=== PATIENT | male | born 1930 | race Caucasian/White ===

== ENCOUNTER 2017-11-02 12:06 | Emergency (ER) | payer MEDICARE, OTHER ==
[2017-11-02] MEDS ORDERED: NORMAL SALINE 1000 ML 1,000 ML IV ONE (12:59)
[2017-11-02 13:18] LABS: ABSOLUTE EOSINOPHILS # (AUTO) 0.1 10^3/uL (0.0-0.6); ABSOLUTE MONOCYTES (AUTO) 0.7 10^3/uL (0.1-1.4); ABSOLUTE NEUT (AUTO) 6.8 10^3/uL (1.7-8.2); BASOPHILS % (AUTO) 0.3 % (0-2); EOSINOPHILS % (AUTO) 0.9 % (0-6); HEMATOCRIT 36.6 % (37.9-51.0); HEMOGLOBIN 12.3 g/dL (13.5-17.0); LYMPHOCYTES % (AUTO) 12.2 % (13-45); MEAN CORPUSCULAR HEMOGLOBIN 28.8 pg (27.0-33.4); MEAN CORPUSCULAR HGB CONC 33.7 g/dL (32.0-36.0); MEAN CORPUSCULAR VOLUME 85 fl (80-97); MONOCYTES % (AUTO) 7.7 % (3-13); PLATELET COUNT 249 10^3/uL (150-450); RED BLOOD COUNT 4.29 10^6/uL (4.35-5.55); RED CELL DISTRIBUTION WIDTH 14.9 % (11.5-14.0); SEGMENTED NEUTROPHILS % (AUTO) 78.9 % (42-78); TOTAL CELLS COUNTED % (AUTO) 100 %; WHITE BLOOD COUNT 8.6 10^3/uL (4.0-10.5)
--- NOTE | 2017-11-02 13:20 | RADIOLOGY REPORT (SQ) ---
EXAM DESCRIPTION: CHEST SINGLE VIEW COMPLETED DATE/TIME: 11/02/2017 1:12 pm REASON FOR STUDY: Falling with contusions of chest. COMPARISON: None. EXAM PARAMETERS: NUMBER OF VIEWS: One view. TECHNIQUE: Single frontal radiographic view of the chest acquired. RADIATION DOSE: NA LIMITATIONS: None. FINDINGS: LUNGS AND PLEURA: No opacities, masses or pneumothorax. No pleural effusion. MEDIASTINUM AND HILAR STRUCTURES: No masses. Contour normal. HEART AND VASCULAR STRUCTURES: Heart normal in size. Normal vasculature. BONES: No rib fractures are appreciated. HARDWARE: None in the chest. OTHER: No other significant finding. IMPRESSION: NO ACUTE RADIOGRAPHIC FINDING IN THE CHEST. TECHNICAL DOCUMENTATION: JOB ID: [id number] [employer]- All Rights Reserved Reading location - IP/workstation name: [email or web address]
--- NOTE | 2017-11-02 13:37 | RADIOLOGY REPORT (SQ) ---
EXAM DESCRIPTION: CT HEAD WITHOUT COMPLETED DATE/TIME: 11/02/2017 1:27 pm REASON FOR STUDY: Hx dementia, altered ment status, no sleep/eat x3d COMPARISON: None. TECHNIQUE: Axial images acquired through the brain without intravenous contrast. Images reviewed wi th bone, brain and subdural windows. Images stored on PACS. All CT scanners at this facility use dose modulation, iterative reconstruction, and/or weight based d osing when appropriate to reduce radiation dose to as low as reasonably achievable (ALARA). [facility]: Dose Right [facility]: CareDose [facility]: Dose Right [facility]: Teradose 4D [facility]: Smart Paws for Life RADIATION DOSE: CT Rad equipment meets quality standard of care and radiation dose reduction techniq ues were employed. CTDIvol: 53.2 - 55.2 mGy. DLP: 2019 mGy-cm.mGy. LIMITATIONS: None. FINDINGS: VENTRICLES: Prominent. CEREBRUM: No masses. No hemorrhage. No midline shift. Areas of low density in the white matter mos t likely due to chronic micro-vascular ischemic change. No evidence for acute infarction. CEREBELLUM: No masses. No hemorrhage. No alteration of density. No evidence for acute infarction. EXTRAAXIAL SPACES: Age-related involutional change. No fluid collections. No masses. ORBITS AND GLOBE: No intra- or extraconal masses. Normal contour of globe without masses. CALVARIUM: No fracture. PARANASAL SINUSES: No fluid or mucosal thickening. SOFT TISSUES: No mass or hematoma. OTHER: No other significant finding. IMPRESSION: CHRONIC CHANGES OF ATROPHY AND MICROVASCULAR ISCHEMIA. NO ACUTE PROCESS. EVIDENCE OF ACUTE STROKE: NO. TECHNICAL DOCUMENTATION: JOB ID: [id number] Quality ID # [id number]: Final reports with documentation of one or more dose reduction techniques (e.g., Au tomated exposure control, adjustment of the mA and/or kV according to patient size, use of iterative reconstruction technique) 2010 [employer]- All Rights Reserved Reading location - IP/workstation name: [email or web address]
[2017-11-02 13:39] LABS: ALANINE AMINOTRANSFERASE 42 U/L (21-72); ALKALINE PHOSPHATASE 118 U/L (38-126); ANION GAP 13 (5-19); ASPARTATE AMINO TRANSFERASE 36 U/L (17-59); BILIRUBIN,DIRECT 0.3 mg/dL (0.0-0.4); BILIRUBIN,TOTAL 0.7 mg/dL (0.2-1.3); BLOOD UREA NITROGEN 29 mg/dL (7-20); CALCIUM 9.1 mg/dL (8.4-10.2); CARBON DIOXIDE 27 mmol/L (22-30); CHLORIDE 101 mmol/L (98-107); CREATINE KINASE 474 U/L (55-170); GLUCOSE 221 mg/dL (75-110); POTASSIUM 4.3 mmol/L (3.6-5.0); SODIUM 140.9 mmol/L (137-145); TOTAL PROTEIN 6.3 g/dL (6.3-8.2)
[2017-11-02 13:51] LABS: CREATINE KINASE MB 2.02 ng/mL (<4.55)
[2017-11-02 13:54] LABS: TROPONIN I 0.086 ng/mL
[2017-11-02 13:58] LABS: APPEARANCE,URINE CLEAR; BILIRUBIN,URINE NEGATIVE (NEGATIVE); COLOR,URINE YELLOW; GLUCOSE, URINE >=500 mg/dL (NEGATIVE); KETONES,URINE TRACE mg/dL (NEGATIVE); LEUKOCYTE ESTERASE,URINE NEGATIVE (NEGATIVE); NITRITE,URINE NEGATIVE (NEGATIVE); PROTEIN,URINE 30 mg/dL (NEGATIVE); URINE SPECIFIC GRAVITY 1.016; UROBILINOGEN,URINE NEGATIVE mg/dL (<2.0)
--- NOTE | 2017-11-02 16:08 | ER Document Report ---
ED General - General Chief Complaint: Weakness Stated Complaint: ALTERED MENTAL STATUS Time Seen by Provider: 11/02/17 12:56 Notes: Patient was brought to the emergency department by his son who is concerned because the patient has been talking out of his head for the last 6 days. The last 3 days, son says the patient has been talking nonstop and has not slept. He has a history of dementia, but has not had problems this severe. Son says he is also falling a lot and has a lot of bruises, hitting his head. Has been taking in fluids orally until the past 2 days when he stopped doing that. Have not noted any fevers. No apparent difficulty breathing or shortness of breath. No trouble with urinating. Family members rotate through the household to help take care of the patient. PMH: Dementia, IDDM, hypertension, depression. TRAVEL OUTSIDE OF THE [place] IN LAST 30 DAYS: No - Related Data Allergies/Adverse Reactions: No Known Allergies Allergy (Unverified 11/02/17 12:10) Past Medical History - Social History Smoking Status: Never Smoker Chew tobacco use (# tins/day): No Frequency of alcohol use: None Drug Abuse: None Family History: Reviewed & Not Pertinent Patient has suicidal ideation: No Patient has homicidal ideation: No - Past Medical History Cardiac Medical History: Reports: Hx Hypertension Denies: Hx Coronary Artery Disease Neurological Medical History: Reports: Other - Dementia. Denies: Hx Cerebrovascular Accident Endocrine Medical History: Reports: Hx Diabetes Mellitus Type 1 Review of Systems - Review of Systems Notes: REVIEW OF SYSTEMS: Review is from patient's son. CONSTITUTIONAL : Denies fever. EENT: Denies eye, ear, nose or mouth or throat pain or other symptoms. CARDIOVASCULAR: Denies chest pain. RESPIRATORY: Denies cough, chest congestion, or shortness of breath. GASTROINTESTINAL: Denies abdominal pain or nausea, vomiting, or diarrhea. GENITOURINARY: Denies difficulty or painful urinating, urinary frequency, blood in urine. MUSCULOSKELETAL: Denies back or neck pain. Denies joint pain or swelling. SKIN: Denies rash or skin lesions. NEUROLOGICAL: Denies LOC. Denies complaining of headache. Denies sensory loss or motor deficits. Son describes patient having frequent intermittent shaking spells with all of his extremities shaking vigorously and he seems very agitated and more confused than usual. ALL OTHER SYSTEMS REVIEWED AND NEGATIVE. -: Yes ROS unobtainable due to patient's medical condition Physical Exam - Vital signs Vitals: Temp Pulse Resp BP Pulse Ox 98.1 F 71 16 150/82 H 98 11/02/17 12:17 11/02/17 12:17 11/02/17 12:17 11/02/17 12:17 11/02/17 12:17 Interpretation: Normal - Notes Notes: PHYSICAL EXAMINATION: GENERAL: Intermittently well-appearing, in no acute distress, but then will have episodes where his 4 extremities shake and quiver and he becomes agitated, although he is not combative and is cooperative to being examined and obtaining lab specimens, etc. HEAD: Atraumatic except for a small bruised area of the right maxillary region of the face. EYES: Pupils equal round and reactive to light, extraocular movements intact. ENT: oropharynx clear without exudates. Moist mucous membranes. NECK: Normal range of motion, supple. LUNGS: Breath sounds clear and equal bilaterally. HEART: Regular rate and rhythm without murmurs. ABDOMEN: Soft, nontender. No guarding or rebound. No masses. BACK: No tenderness throughout entire back. EXTREMITIES: Normal range of motion without pain. NEUROLOGICAL: Patient's speech is almost exclusively un-understandable gibberish mostly talking to himself. Moves all 4 extremities without evidence of any loss of function. Having repeated episodes of shaking of the extremities. Grossly normal sensory, motor, and reflex exams. Awake, alert, but not oriented to anything. PSYCH: Normal mood, normal affect. SKIN: Warm, dry, no rashes. Course - Re-evaluation Re-evalutation: 11/02/17 18:41 Lab studies all came back looking relatively normal with slight elevation in patients BUN suggestive of mild dehydration. No evidence of urinary infection or lung infection or any infectious processes. I think this patient is exhibiting worsening or exacerbation of his dementia disorder. Son says that patient had something similar to this presentation a couple of years ago and it was treated with very low dose of Haldol, 0.5 mg, as needed. They had some of this medication left over and tried it during the past couple days but it has been of no help. That may be that it has lost its potency after a couple of years or that the dose is so low as to be ineffective. I suggested to the son that we provide some medication to see if we can get him to sleep at night and see what that does for him and then also prescribed a little stronger dose of Haldol at 2 mg to take a couple times a day if needed. Recommend they follow-up with Dr. Kevin next week. - Vital Signs Vital signs: Temp Pulse Resp BP Pulse Ox 98.1 F 71 19 157/78 H 89 L 11/02/17 12:17 11/02/17 12:17 11/02/17 16:17 11/02/17 16:17 11/02/17 16:17 - Laboratory Result Diagrams: 11/02/17 13:03 11/02/17 13:03 Laboratory results interpreted by me: 11/02/17 11/02/17 11/02/17 12:50 13:03 13:03 RBC 4.29 L Hgb 12.3 L Hct 36.6 L RDW 14.9 H Seg Neutrophils % 78.9 H Lymphocytes % 12.2 L BUN 29 H Glucose 221 H POC Glucose 254 H Creatine Kinase 474 H Urine Protein Urine Glucose (UA) Urine Ketones 11/02/17 13:35 RBC Hgb Hct RDW Seg Neutrophils % Lymphocytes % BUN Glucose POC Glucose Creatine Kinase Urine Protein 30 H Urine Glucose (UA) >=500 H Urine Ketones TRACE H - Diagnostic Test Radiology reviewed: Image reviewed, Reports reviewed - CT scan of the brain is normal. Radiology results interpreted by me: 11/02/17 18:44 Chest x-ray shows no acute processes. Discharge - Discharge Clinical Impression: Altered mental status, Dehydration, Dementia Condition: Stable Disposition: HOME, SELF-CARE Additional Instructions: Altered Mental Status An altered mental status is a change in the normal functioning of the brain. This alteration of function can range from minor decreased brain function with some forgetfulness and confusion to complete loss of consciousness and coma. There are many possible causes of an altered mental status and include brain injuries such as trauma or strokes, problems with oxygen supply to the brain, fever and infections of the brain and/or elsewhere in the body, metabolic abnormalities such as low or high blood sugar, overdoses or excessive medication ingestion, and mental and psychiatric illnesses. Sometimes the altered mental status resolves and a definite cause is not determined. If a cause for your altered mental status was found, it has likely been corrected. Your evaluation has not shown any condition that requires that you be admitted to the hospital. It is believed that you are safe to leave and return to your home. If you have a return of your symptoms, you should return for re-evaluation. Dementia The exam shows a decrease in mental ability called dementia. Signs of dementia include a gradual loss of memory and a decreased ability to reason and solve problems. Personality changes, hostility, lack of self-care, and loss of bladder or bowel control are later signs of dementia. In these later stages, patients may become confused, lost, fearful, or agitated, even in familiar places. Alzheimer's disease is the most common type of dementia. It has no known cause or specific treatment. Other causes include alcohol and drug abuse, medication effects (especially tranquilizers and sleeping pills), strokes, head injuries, and brain tumors. Sometimes severe depression in an elderly person is mistaken for dementia, and this can be treated if recognized. A complete medical evaluation and ongoing care with a doctor is important. Most people with dementia need help or supervision with daily living. Some may be able to live independently with occasional help; others require foster care or even long-term placement. Alcohol, sedatives, and antihistamines may make the symptoms worse and should be avoided. Alzheimer's disease support groups are available in some communities and can be very valuable to the entire family. Prescription medication can ease the symptoms of Alzheimer's disease in some patients. Please arrange for medical follow-up. Return here if there is a sudden change in mental function, inability to move an arm or leg, inability to speak, fever, or any other significant change. Dehydration Dehydration can result from vomiting or diarrhea, fever, or decreased intake of fluids. If severe, hospitalization and intravenous fluids may be required. Most cases are treated at home with fluids by mouth. For the next 24 hours, drink lots of clear fluids. In mild cases, this can be soda pop or sports drinks. For more severe dehydration, the doctor may recommend special fluids such as Pedialyte or Lytren. Try to get three liters ( 3 quarts) of fluid per day. If vomiting occurs, continue to drink the fluids frequently (every 15 to 20 minutes), but in small amounts (one or two ounces). Depending on the type of dehydration, the doctor may prescribe antinausea medicine or potassium replacements. Call the doctor or return for re-examination if you become progressively weak, vomit repeatedly, or have other new symptoms. NORMAL EXAM AND WORKUP: At this time, your examination and workup show no significant abnormality, other than your mental status changes., But otherwise all the results are essentially normal. No significant abnormal physical findings were noted. All laboratory, EKG, and imaging (x-ray, CT scans, ultrasound) studies that were ordered show no significant abnormality. Although your examination and all studies that were ordered showed no significant abnormal finding, there are no examinations and no studies that are 100% accurate. There is always the possibility that some abnormality could exist and not be detected with physical examination or within the limits and capabilities of laboratory and other studies. You should return or follow up as you were instructed on your visit today for further evaluation if your symptoms do not resolve. I am prescribing Ambien for sleep and Haldol to use during the day for agitation and anxiety, etc. The dosages may be changed and different medication may be used in the past. Follow-up with your primary care provider, Dr. Kevin, next week. Prescriptions: Haloperidol [Haldol 2 Mg Tablet] 2 mg PO BIDP PRN #30 tablet PRN Reason: Zolpidem Tartrate [Ambien 5 mg Tablet] 5 mg PO HSP PRN #25 tablet PRN Reason: Referrals: LUIS KEVIN MD [PEDIATRICS] - Follow up in 3-5 days
[2017-11-02 16:37] VITALS: BP 157/78
--- NOTE | 2017-11-02 18:17 | EKG REPORT ---
SEVERITY:- ABNORMAL ECG - SINUS RHYTHM RIGHT BUNDLE BRANCH BLOCK : Confirmed by: Kaylynn Wall 02-Nov-2017 18:16:56
== END 2017-11-02 16:37 | disposition home or self-care (01) ==
LOC: ER 12:06
DX: R41.82 Altered mental status, unspecified (principal); F03.90 Unspecified dementia, unspecified severity, without behavioral disturbance, psychotic disturbance, mood disturbance, and anxiety; E86.0 Dehydration; R53.83 Other fatigue; E10.9 Type 1 diabetes mellitus without complications; I10 Essential (primary) hypertension; Z79.4 Long term (current) use of insulin
CPT/HCPCS: 93005; 99285; 96360; 96361; 51702; 36415; 87040; 87086; 82553; 82962; 82550; 85025; 80053; 81001; 84484; 71045; 70450; 93010; J7030

== ENCOUNTER 2018-01-14 17:25 | Inpatient (IN) | payer MEDICARE, OTHER ==
[2018-01-14] MEDS ORDERED: NORMAL SALINE 500 ML IV ONE (18:29)
--- NOTE | 2018-01-14 18:32 | ER Document Report ---
ED Medical Screen (RME) - General Chief Complaint: General Weakness Stated Complaint: POSSIBLE DEHYDRATION Time Seen by Provider: 01/14/18 18:08 Mode of Arrival: Wheelchair Information source: Relative Notes: 87-year-old male brought to the emergency department for possible dehydration. Family members state that the patient is cared for by them. For the last 3 days the patient has not consumed any food or fluids. He is unable to swallow. Patient was diagnosed with pneumonia and dysphasia by the primary care physician approximately 5 days ago. Patient was started on an antibiotic. Family is unsure which antibiotic the patient is currently on. They state that he is not taking the antibiotic daily as prescribed because they have had difficulty feeding him. Family note that he is not as responsive as normal. He does have a history of dementia. They state that this is worsening. Family denies any fever, trauma, injury. I have greeted and performed a rapid initial assessment of this patient. A comprehensive ED assessment and evaluation of the patient, analysis of test results and completion of the medical decision making process will be conducted by additional ED providers. PHYSICAL EXAMINATION: GENERAL: Ill-appearing. Cachectic. HEAD: Atraumatic. EYES: Pupils equal round extraocular movements intact, conjunctiva are normal. ENT: Nares patent NECK: Normal range of motion LUNGS: No respiratory distress Musculoskeletal: Ulcerations to the bilateral heels. SKIN: Warm, Dry, ulcerations to the bilateral heels. TRAVEL OUTSIDE OF THE [place] IN LAST 30 DAYS: No - Related Data Allergies/Adverse Reactions: No Known Allergies Allergy (Unverified 11/02/17 12:10) Past Medical History - Social History Chew tobacco use (# tins/day): No Frequency of alcohol use: None Drug Abuse: None - Past Medical History Cardiac Medical History: Reports: Hx Hypertension Denies: Hx Coronary Artery Disease Neurological Medical History: Denies: Hx Cerebrovascular Accident Endocrine Medical History: Reports: Hx Diabetes Mellitus Type 1 Renal/ Medical History: Denies: Hx Peritoneal Dialysis Past Surgical History: Reports: Hx Orthopedic Surgery Physical Exam - Vital signs Vitals: Temp Pulse Resp BP Pulse Ox 97.6 F 114 H 16 150/97 H 98 01/14/18 17:39 01/14/18 17:39 01/14/18 17:39 01/14/18 17:39 01/14/18 17:39 Course - Vital Signs Vital signs: Temp Pulse Resp BP Pulse Ox 97.6 F 114 H 16 150/97 H 98 01/14/18 17:39 01/14/18 17:39 01/14/18 17:39 01/14/18 17:39 01/14/18 17:39
[2018-01-14 19:26] LABS: ABSOLUTE LYMPHOCYTES (AUTO) 1.4 10^3/uL (0.5-4.7); ABSOLUTE MONOCYTES (AUTO) 0.9 10^3/uL (0.1-1.4); BASOPHILS % (AUTO) 0.1 % (0-2); HEMATOCRIT 39.2 % (37.9-51.0); MEAN CORPUSCULAR HEMOGLOBIN 28.4 pg (27.0-33.4); MEAN CORPUSCULAR HGB CONC 33.2 g/dL (32.0-36.0); MEAN CORPUSCULAR VOLUME 86 fl (80-97); MONOCYTES % (AUTO) 6.4 % (3-13); PLATELET COUNT 330 10^3/uL (150-450); RED BLOOD COUNT 4.57 10^6/uL (4.35-5.55); RED CELL DISTRIBUTION WIDTH 15.3 % (11.5-14.0); SEGMENTED NEUTROPHILS % (AUTO) 83.5 % (42-78); TOTAL CELLS COUNTED % (AUTO) 100 %; WHITE BLOOD COUNT 14.4 10^3/uL (4.0-10.5)
--- NOTE | 2018-01-14 19:29 | RADIOLOGY REPORT (SQ) ---
EXAM DESCRIPTION: CHEST SINGLE VIEW COMPLETED DATE/TIME: 01/14/2018 7:01 pm REASON FOR STUDY: pneumonia COMPARISON: 11/02/2017 TECHNIQUE: Single frontal radiographic view of the chest acquired. NUMBER OF VIEWS: One view. LIMITATIONS: None. FINDINGS: LUNGS AND PLEURA: No pneumothorax. Similar chronic interstitial changes in the lung bases , left greater than right. Similar small area of nodularity in the right mid lung, more apparent on the current study. No consolidation or pleural effusion. MEDIASTINUM AND HILAR STRUCTURES: Stable. HEART AND VASCULAR STRUCTURES: Stable. BONES: No acute findings. HARDWARE: None in the chest. OTHER: No other significant finding. IMPRESSION: Similar chronic interstitial changes in the lung bases, left greater than right. Simil ar small area of nodularity in the right mid lung, more apparent on the current study. No consolidat ion or pleural effusion. TECHNICAL DOCUMENTATION: JOB ID: [id number] [place]-72 2010 [employer]- All Rights Reserved Reading location - IP/workstation name: [email or web address]
--- NOTE | 2018-01-14 19:30 | ER Document Report ---
ED General - General Chief Complaint: General Weakness Stated Complaint: POSSIBLE DEHYDRATION Time Seen by Provider: 01/14/18 18:08 Mode of Arrival: Wheelchair Information source: Patient, Relative, Emergency Med Personnel Notes: According to patient's son, patient has not eaten or drank any liquid in the past 3 days. Said patient has been losing weight and he has difficulty swallowing. TRAVEL OUTSIDE OF THE [place] IN LAST 30 DAYS: No - HPI Onset: Other - 3 days Onset/Duration: Gradual Quality of pain: No pain Exacerbated by: Denies Relieved by: Denies Similar symptoms previously: No Recently seen / treated by doctor: No - Related Data Allergies/Adverse Reactions: No Known Allergies Allergy (Unverified 11/02/17 12:10) Past Medical History - General Information source: Relative - Social History Smoking Status: Never Smoker Chew tobacco use (# tins/day): No Frequency of alcohol use: None Drug Abuse: None Family History: Reviewed & Not Pertinent Patient has suicidal ideation: No Patient has homicidal ideation: No - Past Medical History Cardiac Medical History: Reports: Hx Hypertension Denies: Hx Coronary Artery Disease Neurological Medical History: Denies: Hx Cerebrovascular Accident Endocrine Medical History: Reports: Hx Diabetes Mellitus Type 1 Renal/ Medical History: Denies: Hx Peritoneal Dialysis Past Surgical History: Reports: Hx Orthopedic Surgery Review of Systems - Review of Systems -: Yes ROS unobtainable due to patient's medical condition - Patient is too sick and weak to give medical history. Physical Exam - Vital signs Vitals: Temp Pulse Resp BP Pulse Ox 97.6 F 114 H 16 150/97 H 98 01/14/18 17:39 01/14/18 17:39 01/14/18 17:39 01/14/18 17:39 01/14/18 17:39 Interpretation: Normal - General General appearance: Alert, Other - Cachectic - HEENT Head: Normocephalic, Atraumatic Eyes: Normal Pupils: PERRL - Respiratory Respiratory status: No respiratory distress Chest status: Nontender Breath sounds: Normal Chest palpation: Normal - Cardiovascular Rhythm: Regular Heart sounds: Normal auscultation Murmur: No - Abdominal Inspection: Normal Distension: No distension Bowel sounds: Normal Tenderness: Nontender Organomegaly: No organomegaly - Back Back: Normal, Nontender - Extremities General upper extremity: Normal inspection, Nontender, Normal color, Normal ROM , Normal temperature General lower extremity: Normal inspection, Nontender, Normal color, Normal ROM , Normal temperature, Normal weight bearing. No: Jessika's sign - Neurological Neuro grossly intact: Yes Cognition: Inattentive Orientation: Disoriented to place, Disoriented to time [place] Coma Scale Eye Opening: Spontaneous [place] Coma Scale Verbal: Incomprehensible [place] Coma Scale Motor: Obeys Commands Lauryn Coma Scale Total: 12 Sensory: Normal - Psychological Associated symptoms: Flat affect - Skin Skin Temperature: Warm Skin Moisture: Dry Skin Color: Normal Course - Vital Signs Vital signs: Temp Pulse Resp BP Pulse Ox 97.9 F 85 14 121/69 100 01/15/18 01:25 01/15/18 01:25 01/15/18 01:25 01/15/18 01:25 01/15/18 01:25 - Laboratory Result Diagrams: 01/14/18 19:17 01/14/18 19:17 Laboratory results interpreted by me: 01/14/18 01/14/18 01/14/18 19:17 19:17 20:30 WBC 14.4 H Hgb 13.0 L RDW 15.3 H Seg Neutrophils % 83.5 H Lymphocytes % 10.0 L Absolute Neutrophils 12.0 H Sodium 152.0 H Chloride 113 H BUN 63 H Creatinine 1.63 H Est GFR ( Amer) 49 L Est GFR (Non-Af Amer) 40 L Glucose 507 H* POC Glucose Lactic Acid 3.5 H Alkaline Phosphatase 142 H Urine Protein Urine Glucose (UA) Urine Ketones Urine Blood Urine Ascorbic Acid 01/14/18 01/14/18 20:50 21:58 WBC Hgb RDW Seg Neutrophils % Lymphocytes % Absolute Neutrophils Sodium Chloride BUN Creatinine Est GFR ( Amer) Est GFR (Non-Af Amer) Glucose POC Glucose 359 H Lactic Acid Alkaline Phosphatase Urine Protein 100 H Urine Glucose (UA) >=500 H Urine Ketones TRACE H Urine Blood MODERATE H Urine Ascorbic Acid 20 H - Diagnostic Test Radiology reviewed: Image reviewed, Reports reviewed - EKG Interpretation by Me EKG shows normal: Sinus rhythm Rate: Tachycardia - 100 [place]/QRS: RBBB When compared to previous EKG there are: Previous EKG unavailable Additional EKG results interpreted by me: 01/15/18 00:31 No STEMI - Transfer of Care Care transferred to following provider: Patient will be admitted by Dr. Gustavo Norwood the hospitalist software implementation specialist. Critical Care Note - Critical Care Note Total time excluding time spent on procedures (mins): 45 Discharge - Discharge Clinical Impression: Severe dehydration, Failure to thrive in adult Dysphagia Qualifiers: Dysphagia type: oropharyngeal phase Qualified Code(s): R13.12 - Dysphagia, oropharyngeal phase Hyperglycemia due to type 2 diabetes mellitus Qualifiers: Diabetes mellitus local intermodal truck driver insulin use: unspecified local intermodal truck driver insulin use status Qualified Code(s): E11.65 - Type 2 diabetes mellitus with hyperglycemia Aspiration pneumonia Qualifiers: Aspiration pneumonia type: unspecified Laterality: unspecified laterality Lung location: lower lobe of lung Qualified Code(s): J69.0 - Pneumonitis due to inhalation of food and vomit Condition: Fair Disposition: ADMITTED INPATIENT Admitting Provider: Dr Gustavo Norwood Unit Admitted: Telemetry
--- NOTE | 2018-01-14 19:35 | RADIOLOGY REPORT (SQ) ---
EXAM DESCRIPTION: CT HEAD WITHOUT COMPLETED DATE/TIME: 01/14/2018 7:07 pm REASON FOR STUDY: ams COMPARISON: 11/02/2017 TECHNIQUE: Axial images acquired through the brain without intravenous contrast. Images reviewed wi th bone, brain and subdural windows. Additional sagittal and coronal reconstructions were generated. Images stored on PACS. All CT scanners at this facility use dose modulation, iterative reconstruction, and/or weight based d osing when appropriate to reduce radiation dose to as low as reasonably achievable (ALARA). [facility]: Dose Right [facility]: CareDose [facility]: Dose Right [facility]: Teradose 4D [facility]: Smart [employer] RADIATION DOSE: CT Rad equipment meets quality standard of care and radiation dose reduction techniq ues were employed. CTDIvol: 53.2 mGy. DLP: 1017 mGy-cm. mGy. LIMITATIONS: None. FINDINGS: VENTRICLES: Normal size and contour. CEREBRUM: Cortical atrophy. No masses. No hemorrhage. No midline shift. No evidence for acute inf arction. Few scattered areas of low density in the white matter most likely chronic small vessel isch emic changes. CEREBELLUM: No masses. No hemorrhage. No alteration of density. No evidence for acute infarction. EXTRAAXIAL SPACES: Chronic bilateral subdural fluid collections with no acute hemorrhage. ORBITS AND GLOBE: No intra- or extraconal masses. Normal contour of globe without masses. CALVARIUM: No fracture. PARANASAL SINUSES: No fluid or mucosal thickening. SOFT TISSUES: No mass or hematoma. OTHER: No other significant finding. IMPRESSION: Chronic bilateral subdural collections. Involutional changes of aging. Chronic microva scular ischemia. No acute intracranial imaging findings. EVIDENCE OF ACUTE STROKE: NO. COMMENT: Quality ID # [id number]: Final reports with documentation of one or more dose reduction techniques (e.g., Automated exposure control, adjustment of the mA and/or kV according to patient size, use of iterative reconstruction technique) TECHNICAL DOCUMENTATION: JOB ID: [id number] [employer] [place]- All Rights Reserved Reading location - IP/workstation name: [email or web address]
[2018-01-14 19:43] LABS: BLOOD UREA NITROGEN 63 mg/dL (7-20); CALCIUM 9.7 mg/dL (8.4-10.2)
[2018-01-14 19:44] LABS: ALANINE AMINOTRANSFERASE 22 U/L (21-72); ALBUMIN 3.8 g/dL (3.5-5.0); ALKALINE PHOSPHATASE 142 U/L (38-126); ANION GAP 15 (5-19); ASPARTATE AMINO TRANSFERASE 20 U/L (17-59); BILIRUBIN,DIRECT 0.4 mg/dL (0.0-0.4); BILIRUBIN,TOTAL 0.7 mg/dL (0.2-1.3); CARBON DIOXIDE 24 mmol/L (22-30); CHLORIDE 113 mmol/L (98-107); POTASSIUM 4.3 mmol/L (3.6-5.0); TOTAL PROTEIN 6.6 g/dL (6.3-8.2)
[2018-01-14 19:56] LABS: GLUCOSE 507 mg/dL (75-110)
[2018-01-14] MEDS ORDERED: NORMAL SALINE 1000 ML 1,000 ML IV ONE ×2 (20:11→20:12)
[2018-01-14] MEDS ORDERED: LEVOFLOXACIN 750 MG/D5W RTU 750 MG/150 ML RTUPB IV ONE (20:13)
[2018-01-14] MEDS ORDERED: INSULIN REG, HUMAN 100 UNIT/ML 3 ML VIAL (PYX) IV ONE (20:14)
[2018-01-14 21:22] LABS: APPEARANCE,URINE SLIGHTLY-CLOUDY; BILIRUBIN,URINE NEGATIVE (NEGATIVE); COLOR,URINE YELLOW; GLUCOSE, URINE >=500 mg/dL (NEGATIVE); KETONES,URINE TRACE mg/dL (NEGATIVE); LEUKOCYTE ESTERASE,URINE NEGATIVE (NEGATIVE); NITRITE,URINE NEGATIVE (NEGATIVE); PROTEIN,URINE 100 mg/dL (NEGATIVE); URINE SPECIFIC GRAVITY 1.029; UROBILINOGEN,URINE NEGATIVE mg/dL (<2.0)
--- NOTE | 2018-01-14 23:12 | RADIOLOGY REPORT (SQ) ---
EXAM DESCRIPTION: XR ABDOMEN 1 VIEW (KUB) COMPLETED DATE/TME: 01/14/2018 22:37 CLINICAL HISTORY: 87 years Male Anorexia COMPARISON: None. TECHNIQUE: Single view of the abdomen. FINDINGS: No evidence of free intraperitoneal air. No bowel obstruction. Psoas margins are sharp. Vascular calcification is present. Degenerative changes in the spine. IMPRESSION: No acute plain film abnormality is identified.
[2018-01-14] MEDS ORDERED: ACETAMINOPHEN 650 MG SUPP.RECT PR PRN (23:39)
[2018-01-14] MEDS ORDERED: GLUCAGON,HUMAN RECOMB 1 MG INJ IM PRN (23:39)
[2018-01-14] MEDS ORDERED: MAG HYDROX/AL HYDROX/SIMETH SUSP 30 ML UDCUP PO PRN (23:39)
[2018-01-14] MEDS ORDERED: MAGNESIUM HYDROXIDE SUSP 30 ML UDCUP PO PRN (23:39)
[2018-01-14] MEDS ORDERED: DEXTROSE 40% GEL 15 GM TUBE PO PRN ×2 (23:39)
[2018-01-14] MEDS ORDERED: IPRATROPIUM/ALBUTEROL 0.5-2.5 MG/3 ML AMPUL NEB PRN (23:39)
[2018-01-14] MEDS ORDERED: DEXTROSE 50%-WATER 25 GM/50 ML DISP.SYRIN IV PRN ×2 (23:39)
[2018-01-14] MEDS ORDERED: NORMAL SALINE 1000 ML 1,000 ML IV SCH (23:45)
[2018-01-15] MEDS ORDERED: LORAZEPAM INJ 2 MG/1 ML VIAL IV ONE (02:15)
[2018-01-15] MEDS: 1/2 NORMAL SALINE 1,000 ML IV PRN ×3 (02:20→16:13)
[2018-01-15] MEDS: HEPARIN SOD (PORCINE) 5,000 UNIT/ML 1 ML SYRINGE SUBCUT SCH ×3 (06:37→21:53)
[2018-01-15 07:44] LABS: ABSOLUTE EOSINOPHILS # (AUTO) 0.1 10^3/uL (0.0-0.6); ABSOLUTE LYMPHOCYTES (AUTO) 1.1 10^3/uL (0.5-4.7); ABSOLUTE MONOCYTES (AUTO) 0.5 10^3/uL (0.1-1.4); ABSOLUTE NEUT (AUTO) 5.9 10^3/uL (1.7-8.2); BASOPHILS % (AUTO) 0.1 % (0-2); EOSINOPHILS % (AUTO) 1.2 % (0-6); LYMPHOCYTES % (AUTO) 14.5 % (13-45); MEAN CORPUSCULAR HEMOGLOBIN 29.1 pg (27.0-33.4); MEAN CORPUSCULAR HGB CONC 34.6 g/dL (32.0-36.0); MEAN CORPUSCULAR VOLUME 84 fl (80-97); MONOCYTES % (AUTO) 7.1 % (3-13); PLATELET COUNT 198 10^3/uL (150-450); RED BLOOD COUNT 3.45 10^6/uL (4.35-5.55); RED CELL DISTRIBUTION WIDTH 15.2 % (11.5-14.0); SEGMENTED NEUTROPHILS % (AUTO) 77.1 % (42-78); TOTAL CELLS COUNTED % (AUTO) 100 %; WHITE BLOOD COUNT 7.6 10^3/uL (4.0-10.5)
--- NOTE | 2018-01-15 07:50 | PDOC H&P ---
History of Present Illness Admission Date/PCP: 01/14/18 23:28 LUIS KEVIN MD Patient complains of: Anorexia History of Present Illness: REDDY ROSAS is a 87 year old male with a past medical history of diabetes, advanced dementia, nonverbal requiring 100% care by family members at bedside. He presents with 1 week of cough with eating and drinking. He is recently started on Levaquin for possible pneumonia. Patient was noted to take medications without water. Followed by significant reluctance of p.o. intake. In the emergency room he is found to have hyponatremia, acute renal failure, dehydration and hyperglycemia. He is referred to the hospitalist for admission. Family members at bedside verifies CODE STATUS with portable DNR. Past Medical History Cardiac Medical History: Reports: Hypertension Denies: Coronary Artery Disease Endocrine Medical History: Reports: Diabetes Mellitus Type 1 Psychiatric Medical History: Reports: Dementia Past Surgical History Past Surgical History: Reports: Orthopedic Surgery Social History Information Source: Relative, [facility] Records Lives with: Family Smoking Status: Never Smoker Frequency of Alcohol Use: None Hx Recreational Drug Use: No Drugs: None Hx Prescription Drug Abuse: No - Advance Directive Resuscitation Status: Do Not Resuscitate Family History Family History: Other - Hypertension, negative for Alzheimer's Parental Family History Reviewed: Yes Children Family History Reviewed: Yes Sibling(s) Family History Reviewed.: Yes Medication/Allergy Allergies/Adverse Reactions: No Known Allergies Allergy (Unverified 11/02/17 12:10) Review of Systems ROS unobtainable: Due to mental status - Advanced dementia nonverbal state. Physical Exam Vital Signs: Temp Pulse Resp BP Pulse Ox 97.4 F 72 19 110/65 96 01/15/18 03:42 01/15/18 07:00 01/15/18 03:42 01/15/18 03:42 01/15/18 03:42 Intake & Output 01/13/18 01/14/18 01/15/18 11:59 11:59 11:59 Weight 46.1 kg General appearance: PRESENT: no acute distress, thin. ABSENT: cooperative Head exam: PRESENT: atraumatic, normocephalic Eye exam: PRESENT: conjunctiva pink, EOMI, PERRLA. ABSENT: scleral icterus Ear exam: PRESENT: normal external ear exam Mouth exam: PRESENT: dry mucosa, tongue midline. ABSENT: laceration, moist Neck exam: ABSENT: carotid bruit, JVD, lymphadenopathy, thyromegaly Respiratory exam: PRESENT: clear to auscultation tanner. ABSENT: rales, rhonchi, wheezes Cardiovascular exam: PRESENT: RRR. ABSENT: diastolic murmur, rubs, systolic murmur Pulses: PRESENT: normal dorsalis pedis pul Vascular exam: PRESENT: normal capillary refill GI/Abdominal exam: PRESENT: normal bowel sounds, soft. ABSENT: distended, guarding, mass, organolmegaly, rebound, tenderness Rectal exam: PRESENT: deferred Extremities exam: PRESENT: full ROM. ABSENT: calf tenderness, clubbing, pedal edema Neurological exam: PRESENT: alert, awake, CN II-XII grossly intact. ABSENT: motor sensory deficit Psychiatric exam: PRESENT: appropriate affect, normal mood. ABSENT: homicidal ideation, suicidal ideation Skin exam: PRESENT: dry, intact, warm. ABSENT: cyanosis, rash Results Laboratory Results: 01/15/18 00:23 Lactic Acid 3.6 H Impressions: Chest X-Ray 01/14/18 18:27 IMPRESSION: Similar chronic interstitial changes in the lung bases, left greater than right. Similar small area of nodularity in the right mid lung, more apparent on the current study. No consolidation or pleural effusion. Head CT 01/14/18 18:28 IMPRESSION: Chronic bilateral subdural collections. Involutional changes of aging. Chronic microvascular ischemia. No acute intracranial imaging findings. EVIDENCE OF ACUTE STROKE: NO. KUB X-Ray 01/14/18 22:37 IMPRESSION: No acute plain film abnormality is identified. Assessment & Plan - Diagnosis (1) Dysphagia Qualifiers: Dysphagia type: oropharyngeal phase Qualified Code(s): R13.12 - Dysphagia, oropharyngeal phase Is this a current diagnosis for this admission?: Yes Plan: Versus odynophagia, patient noted to consume p.o. medications without water prior to worsening of symptom. Speech therapy consult, consider modified barium swallow study. Supportive care, consider NG. 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
--- NOTE | 2018-01-15 07:52 | EKG REPORT ---
SEVERITY:- ABNORMAL ECG - SINUS TACHYCARDIA RBBB AND LAFB : Confirmed by: Elmer Gentile MD 15-Jan-2018 07:51:00
[2018-01-15 08:04] LABS: ANION GAP 8 (5-19); BLOOD UREA NITROGEN 48 mg/dL (7-20); CARBON DIOXIDE 23 mmol/L (22-30); CHLORIDE 122 mmol/L (98-107); GLUCOSE 179 mg/dL (75-110); POTASSIUM 3.5 mmol/L (3.6-5.0); SODIUM 153.3 mmol/L (137-145)
[2018-01-15 08:29] LABS: INTERNATIONAL RATION (INR) 1.18; PROTHROMBIN TIME 15.6 SEC (11.4-15.4)
[2018-01-15] MEDS ORDERED: PHARMACY COMMUNICATION ORDER MC NR (11:00)
[2018-01-15] MEDS ORDERED: MAGNESIUM HYDROXIDE SUSP 30 ML UDCUP NG PRN (11:24)
[2018-01-15] MEDS ORDERED: MAG HYDROX/AL HYDROX/SIMETH SUSP 30 ML UDCUP NG PRN (11:24)
--- NOTE | 2018-01-15 13:11 | RADIOLOGY REPORT (SQ) ---
EXAM DESCRIPTION: KUB/ABDOMEN (SINGLE VIEW) COMPLETED DATE/TIME: 01/15/2018 12:25 pm REASON FOR STUDY: Check Placement of NG Tube altered mental status, unable to swallow COMPARISON: KUB 01/14/2018 NUMBER OF VIEWS: One view. TECHNIQUE: Supine radiographic image of the abdomen acquired. LIMITATIONS: Film for nasogastric tube placement. Mid and lower abdomen cropped from the field of v iew FINDINGS: BOWEL GAS PATTERN: Normal bowel gas pattern. No dilated loops. CALCIFICATIONS: No suspicious calcifications. SOFT TISSUES: No gross mass or suggestion of organomegaly. HARDWARE: There is a nasogastric tube present with the tip and side-port in stomach. Clips right upp er quadrant post cholecystectomy. BONES: No acute fracture. No worrisome bone lesions. OTHER: Lung bases are clear IMPRESSION: Nasogastric tube tip and side port in the stomach TECHNICAL DOCUMENTATION: JOB ID: [id number] [employer]- All Rights Reserved Reading location - IP/workstation name: [email or web address]
[2018-01-15] MEDS: INSULIN LISPRO 100 UNIT/ML 3 ML VIAL SUBCUT PRN (16:14)
--- NOTE | 2018-01-15 18:09 | Progress Note ---
Provider Note Provider Note: REDDY ROSAS is a 87 year old male with a past medical history of diabetes, advanced dementia, nonverbal requiring 100% care by family members at bedside. He presents with 1 week of cough with eating and drinking, significant reluctance of p.o. intake. Admitted to hospitalist for hyponatremia, acute renal failure, dehydration and hyperglycemia. Family members state they want to pursue NG placement and enteral feeding. 1. HYPERnatremia: secondary to dehydration. Continue 1/2NS IVF. Plan for NG placement with free water flushes. 2. ARF: secondary to dehydration and poor nutrition. Continue IVF. 3. AMS: Likely multifactoral -electrolyte derangement, dehydration, poor nutrition, possible PNA. PNA addressed with abx. All other issues addressed with IV hydration and enteral feeding. 4. DNR: family has provided portable DNR.
[2018-01-16 05:52] LABS: ABSOLUTE EOSINOPHILS # (AUTO) 0.2 10^3/uL (0.0-0.6); ABSOLUTE LYMPHOCYTES (AUTO) 1.1 10^3/uL (0.5-4.7); ABSOLUTE MONOCYTES (AUTO) 0.4 10^3/uL (0.1-1.4); ABSOLUTE NEUT (AUTO) 5.1 10^3/uL (1.7-8.2); BASOPHILS % (AUTO) 0.2 % (0-2); EOSINOPHILS % (AUTO) 3.2 % (0-6); HEMATOCRIT 28.9 % (37.9-51.0); HEMOGLOBIN 9.8 g/dL (13.5-17.0); LYMPHOCYTES % (AUTO) 16.2 % (13-45); MEAN CORPUSCULAR HEMOGLOBIN 28.8 pg (27.0-33.4); MEAN CORPUSCULAR HGB CONC 34.1 g/dL (32.0-36.0); MEAN CORPUSCULAR VOLUME 85 fl (80-97); MONOCYTES % (AUTO) 5.7 % (3-13); PLATELET COUNT 183 10^3/uL (150-450); RED BLOOD COUNT 3.41 10^6/uL (4.35-5.55); RED CELL DISTRIBUTION WIDTH 14.9 % (11.5-14.0); SEGMENTED NEUTROPHILS % (AUTO) 74.7 % (42-78); TOTAL CELLS COUNTED % (AUTO) 100 %; WHITE BLOOD COUNT 6.8 10^3/uL (4.0-10.5)
[2018-01-16] MEDS: HEPARIN SOD (PORCINE) 5,000 UNIT/ML 1 ML SYRINGE SUBCUT SCH ×3 (06:34→23:02)
[2018-01-16 10:07] LABS: ALBUMIN 2.4 g/dL (3.5-5.0); CARBON DIOXIDE 24 mmol/L (22-30); TOTAL PROTEIN 4.5 g/dL (6.3-8.2)
[2018-01-16 10:08] LABS: GLUCOSE 148 mg/dL (75-110)
[2018-01-16 10:10] LABS: ALANINE AMINOTRANSFERASE 31 U/L (21-72); ALKALINE PHOSPHATASE 94 U/L (38-126); ASPARTATE AMINO TRANSFERASE 45 U/L (17-59); BILIRUBIN,DIRECT 0.1 mg/dL (0.0-0.4); BILIRUBIN,TOTAL 0.4 mg/dL (0.2-1.3); BLOOD UREA NITROGEN 32 mg/dL (7-20); CALCIUM 7.8 mg/dL (8.4-10.2); CHLORIDE 116 mmol/L (98-107); POTASSIUM 3.4 mmol/L (3.6-5.0)
[2018-01-16 10:14] LABS: ANION GAP 4 (5-19)
[2018-01-16] MEDS ORDERED: POTASSIUM CHLORIDE 20 MEQ/15 ML UDCUP PO ONE (11:30)
[2018-01-16] MEDS: INSULIN LISPRO 100 UNIT/ML 3 ML VIAL SUBCUT PRN ×2 (12:19→17:49)
--- NOTE | 2018-01-16 17:30 | RADIOLOGY REPORT (SQ) ---
EXAM DESCRIPTION: KUB/ABDOMEN (SINGLE VIEW) COMPLETED DATE/TIME: 01/16/2018 5:05 pm REASON FOR STUDY: NG placement COMPARISON: 01/15/2018, 01/14/2018 NUMBER OF VIEWS: One view. TECHNIQUE: Supine radiographic images of the abdomen acquired. LIMITATIONS: None. FINDINGS: BOWEL GAS PATTERN: 2 separate supine views of the abdomen were submitted. 1 demonstrates an NG tube coiled in the esophagus. The other demonstrates the NG tube overlying the left upper quad rant presumably within stomach. Both films are dated 01/16/2018 at 1649 hours. CALCIFICATIONS: No suspicious calcifications. SOFT TISSUES: No gross mass or suggestion of organomegaly. HARDWARE: None in the abdomen. BONES: No acute fracture. No worrisome bone lesions. OTHER: No other significant finding. IMPRESSION: 2 separate views of the abdomen were submitted 1 demonstrates the NG tube coiled in the esophagus. A separate film demonstrates an NG tube with the tip in the left upper quadrant most like ly stomach. Timing of the films cannot be determined. TECHNICAL DOCUMENTATION: JOB ID: [id number] [employer] All Rights Reserved Reading location - IP/workstation name: [email or web address]
--- NOTE | 2018-01-16 20:44 | PDOC PROGRESS REPORT ---
Subjective Progress Note for:: 01/16/18 Subjective:: REDDY ROSAS is a 87 year old male with a past medical history of diabetes, advanced dementia, nonverbal requiring 100% care by family members at bedside. He presents with 1 week of cough with eating and drinking, significant reluctance of p.o. intake. Admitted to hospitalist for hyponatremia, acute renal failure, dehydration and hyperglycemia. The patient was seen this afternoon on rounds. He is awake, eyes open and oriented to self. He is disoriented to place, time and situation. This is a marked improvement compared to yesterday when the patient was nonverbal and would not open his eyes. An NG tube was inserted yesterday afternoon and the patient was started on enteral feeding. His electrolyte imbalances have significantly improved today. Unfortunately, the patient's family was not at the bedside. Plan to continue enteral feeding and free water today. Plan for swallow evaluation tomorrow. Reason For Visit: DYSPHAGIA, ARF, DEHYDRATION, DEMENTIA HTN Physical Exam Vital Signs: Temp Pulse Resp BP Pulse Ox 97.2 F 66 16 133/57 H 96 01/16/18 15:38 01/16/18 16:35 01/16/18 16:35 01/16/18 15:38 01/16/18 16:35 Intake & Output 01/15/18 01/16/18 01/17/18 06:59 06:59 06:59 Intake Total 3000 840 Balance 3000 840 Weight 46.1 kg 46.1 kg General appearance: PRESENT: thin Head exam: PRESENT: atraumatic Eye exam: PRESENT: conjunctiva pink, PERRLA Mouth exam: PRESENT: moist, neck supple, tongue midline Teeth exam: PRESENT: poor dentation Neck exam: PRESENT: full ROM Respiratory exam: PRESENT: clear to auscultation tanner, symmetrical, unlabored Cardiovascular exam: PRESENT: +S1, +S2 Pulses: PRESENT: normal radial pulses, +1 pedal pulses bilateral Vascular exam: PRESENT: normal capillary refill GI/Abdominal exam: PRESENT: normal bowel sounds, soft. ABSENT: tenderness Rectal exam: PRESENT: deferred Extremities exam: PRESENT: other - LOWER EXTREMITY ATROPHY. KNEES ARE CONTRACTED.. ABSENT: full ROM, pedal edema Musculoskeletal exam: ABSENT: ambulatory, full ROM, normal inspection - LOWER EXTREMITY ATROPHY. KNEES ARE CONTRACTED. Neurological exam: PRESENT: alert, awake, oriented to person. ABSENT: oriented to place, oriented to time, oriented to situation Skin exam: PRESENT: dry, intact, pallor Results Laboratory Results: 01/16/18 05:28 01/16/18 05:28 01/16/18 01/16/18 05:28 05:28 WBC 6.8 RBC 3.41 L Hgb 9.8 L Hct 28.9 L MCV 85 MCH 28.8 MCHC 34.1 RDW 14.9 H Plt Count 183 Seg Neutrophils % 74.7 Lymphocytes % 16.2 Monocytes % 5.7 Eosinophils % 3.2 Basophils % 0.2 Absolute Neutrophils 5.1 Absolute Lymphocytes 1.1 Absolute Monocytes 0.4 Absolute Eosinophils 0.2 Absolute Basophils 0.0 Sodium 144.0 Potassium 3.4 L Chloride 116 H Carbon Dioxide 24 Anion Gap 4 L BUN 32 H Creatinine 0.89 Est GFR ( Amer) > 60 Est GFR (Non-Af Amer) > 60 Glucose 148 H Calcium 7.8 L Total Bilirubin 0.4 AST 45 ALT 31 Alkaline Phosphatase 94 Total Protein 4.5 L Albumin 2.4 L Impressions: Chest X-Ray 01/14/18 18:27 IMPRESSION: Similar chronic interstitial changes in the lung bases, left greater than right. Similar small area of nodularity in the right mid lung, more apparent on the current study. No consolidation or pleural effusion. Head CT 01/14/18 18:28 IMPRESSION: Chronic bilateral subdural collections. Involutional changes of aging. Chronic microvascular ischemia. No acute intracranial imaging findings. EVIDENCE OF ACUTE STROKE: NO. KUB X-Ray 01/16/18 00:00 IMPRESSION: 2 separate views of the abdomen were submitted 1 demonstrates the NG tube coiled in the esophagus. A separate film demonstrates an NG tube with the tip in the left upper quadrant most likely stomach. Timing of the films cannot be determined. Status: Imported from PACS Assessment & Plan - Diagnosis (1) Failure to thrive in adult Is this a current diagnosis for this admission?: Yes Plan: Improving. Likely multifactoral -electrolyte derangement, dehydration, poor nutrition, possible PNA. PNA addressed with abx. All other issues addressed with IV hydration and enteral feeding. Patient is more awake and alert today (2) Dysphagia Qualifiers: Dysphagia type: oropharyngeal phase Qualified Code(s): R13.12 - Dysphagia, oropharyngeal phase Is this a current diagnosis for this admission?: Yes Plan: Unable to participate in initial swallow evaluation NG placed for nutrition and hydration Now that patient is more awake, plan to re-evaluate swallowing ability (3) Hypernatremia Is this a current diagnosis for this admission?: Yes Plan: Resolved Na trending down 153-->144 Secondary to dehydration. Discontinue 1/2NS IVF, free water flushes only. Continue enteral feeding (4) Severe dehydration Is this a current diagnosis for this admission?: Yes Plan: Secondary to prolonged anorexia and dysphagia Improved with IVF and enteral feeding BUN decreased from 63-->38 (5) Acute renal failure Is this a current diagnosis for this admission?: Yes Plan: Resolved Initial creatinine 1.6 now improved to 0.89 Discontinued IVF now receiving enteral feeding and free water flushes - Time Time Spent with patient: 15-24 minutes Medications reviewed and adjusted accordingly: Yes Anticipated discharge: Home - Inpatient Certification Based on my medical assessment, after consideration of the patient's comorbidities, presenting symptoms, or acuity I expect that the services needed warrant INPATIENT care.: Yes I certify that my determination is in accordance with my understanding of Medicare's requirements for reasonable and necessary INPATIENT services [42 CFR 412.3e].: Yes Medical Necessity: Risk of Complication if Not Cared For in Hospital - Plan Summary Plan Summary: CONTINUE ENTERAL FEEDING AND FREE WATER FLUSHES. SWALLOW EVALUATION TOMORROW.
[2018-01-17 04:58] LABS: ABSOLUTE EOSINOPHILS # (AUTO) 0.2 10^3/uL (0.0-0.6); ABSOLUTE MONOCYTES (AUTO) 0.4 10^3/uL (0.1-1.4); ABSOLUTE NEUT (AUTO) 5.3 10^3/uL (1.7-8.2); BASOPHILS % (AUTO) 0.2 % (0-2); EOSINOPHILS % (AUTO) 2.7 % (0-6); HEMATOCRIT 30.2 % (37.9-51.0); HEMOGLOBIN 10.4 g/dL (13.5-17.0); LYMPHOCYTES % (AUTO) 14.4 % (13-45); MEAN CORPUSCULAR HGB CONC 34.4 g/dL (32.0-36.0); MEAN CORPUSCULAR VOLUME 84 fl (80-97); MONOCYTES % (AUTO) 5.5 % (3-13); PLATELET COUNT 196 10^3/uL (150-450); RED BLOOD COUNT 3.58 10^6/uL (4.35-5.55); RED CELL DISTRIBUTION WIDTH 14.9 % (11.5-14.0); SEGMENTED NEUTROPHILS % (AUTO) 77.2 % (42-78); TOTAL CELLS COUNTED % (AUTO) 100 %; WHITE BLOOD COUNT 6.8 10^3/uL (4.0-10.5)
[2018-01-17 05:12] LABS: ALANINE AMINOTRANSFERASE 33 U/L (21-72); ALBUMIN 2.5 g/dL (3.5-5.0); ALKALINE PHOSPHATASE 112 U/L (38-126); ANION GAP 7 (5-19); ASPARTATE AMINO TRANSFERASE 43 U/L (17-59); BILIRUBIN,DIRECT 0.1 mg/dL (0.0-0.4); BILIRUBIN,TOTAL 0.3 mg/dL (0.2-1.3); BLOOD UREA NITROGEN 27 mg/dL (7-20); CALCIUM 8.2 mg/dL (8.4-10.2); CARBON DIOXIDE 23 mmol/L (22-30); CHLORIDE 110 mmol/L (98-107); GLUCOSE 210 mg/dL (75-110); SODIUM 139.5 mmol/L (137-145); TOTAL PROTEIN 4.8 g/dL (6.3-8.2)
[2018-01-17] MEDS: HEPARIN SOD (PORCINE) 5,000 UNIT/ML 1 ML SYRINGE SUBCUT SCH ×3 (05:43→22:40)
[2018-01-17] MEDS: INSULIN LISPRO 100 UNIT/ML 3 ML VIAL SUBCUT PRN ×3 (06:54→16:55)
--- NOTE | 2018-01-17 12:57 | RADIOLOGY REPORT (SQ) ---
EXAM DESCRIPTION: DONALD SWALLOW COMPLETED DATE/TIME: 01/17/2018 10:37 am REASON FOR STUDY: ASSESS NEED FOR ENTERAL FEEDING advanced dementia, dysphagia, high suspicion for a spiration pneumonia COMPARISON: None. TECHNIQUE: Videofluoroscopic swallowing examination was performed in conjunction with speech patholo gy. Videofluoroscopic imaging was obtained and reviewed and these are the findings: RADIATION DOSE: Fluoro time 4.4 minutes 1 images saved to PACS. LIMITATIONS: None FINDINGS: The patient was brought into the fluoro room and placed upright on a modified barium swall ow chair. The patient was then given multiple consistencies mixed with barium to swallow under live fluoroscopic video guidance. According to the Speech Pathologist there was laryngeal penetration wit h possible trace aspiration identified with thin barium. Laryngeal penetration also seen with nectar thick consistency. Please refer to the speech pathology report for further details. 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 COMMENT: None Quality ID [id number]: Final reports for procedures using fluoroscopy that document radiation exposure pineda misti, or exposure time and number of fluorographic images (if radiation exposure indices are not avail able) TECHNICAL DOCUMENTATION: JOB ID: [id number] [employer]- All Rights Reserved Reading location - IP/workstation name: [email or web address] [email or web address]
[2018-01-17] MEDS ORDERED: HALOPERIDOL 5 MG TABLET PO PRN (13:18)
[2018-01-17] MEDS ORDERED: (PENDING PHARMACY ID) (Valsartan/Hydrochlorothiazide [Valsartan-Hctz 80-12.5 Mg Tab] 1 TAB PO SCH (13:30)
[2018-01-17] MEDS ORDERED: HALOPERIDOL LACTATE INJ 5 MG/1 ML VIAL IV ONE (14:00)
[2018-01-17] MEDS: NYSTATIN CREAM 15 GM TOP SCH ×3 (15:25→22:39)
[2018-01-17] MEDS ORDERED: HALOPERIDOL LACTATE INJ 5 MG/1 ML VIAL ONE (16:28)
--- NOTE | 2018-01-17 16:36 | PDOC PROGRESS REPORT ---
Subjective Progress Note for:: 01/17/18 Subjective:: REDDY ROSAS is a 87 year old male with a past medical history of diabetes, advanced dementia, nonverbal requiring 100% care by family members at bedside. He presents with 1 week of cough with eating and drinking, significant reluctance of p.o. intake. Admitted to hospitalist for hyponatremia, acute renal failure, dehydration and hyperglycemia. The patient was seen this afternoon on rounds. He is awake, eyes open and oriented to self and place. He is disoriented to time and situation. The patient passed his modified barium swallow evaluation, speech therapist recommended a mechanical soft diet with thickened liquids. Nursing staff reports the patient was able to tolerate a few bites of lunch. An NG tube remains in place for now in case the patient isn't able to get enough nutrition from food and enteral feeding needs to be resumed. Continue to reevaluate swallowing with dinner tonight. Barring any complications , plan to discontinue NG tonight/tomorrow AM. Reason For Visit: DYSPHAGIA, ARF, DEHYDRATION, DEMENTIA HTN Physical Exam Vital Signs: Temp Pulse Resp BP Pulse Ox 97.7 F 76 20 142/66 H 100 01/17/18 13:11 01/17/18 14:00 01/17/18 13:11 01/17/18 13:11 01/17/18 04:03 Intake & Output 01/16/18 01/17/18 01/18/18 06:59 06:59 06:59 Intake Total 3000 840 Balance 3000 840 Weight 46.1 kg 51.1 kg General appearance: PRESENT: thin Head exam: PRESENT: atraumatic Eye exam: PRESENT: conjunctiva pink, PERRLA Mouth exam: PRESENT: moist, tongue midline Teeth exam: PRESENT: poor dentation Neck exam: PRESENT: full ROM Respiratory exam: PRESENT: clear to auscultation tanner, symmetrical, unlabored Cardiovascular exam: PRESENT: +S1, +S2 Pulses: PRESENT: normal radial pulses, normal dorsalis pedis pul GI/Abdominal exam: PRESENT: soft. ABSENT: tenderness Rectal exam: PRESENT: deferred Extremities exam: ABSENT: full ROM, pedal edema Musculoskeletal exam: ABSENT: ambulatory, full ROM, normal inspection Neurological exam: PRESENT: alert, awake, oriented to person, oriented to place. ABSENT: oriented to time, oriented to situation Skin exam: PRESENT: dry, intact, pallor, warm Results Laboratory Results: 10/18/18 04:30 01/17/18 04:30 01/17/18 01/17/18 04:30 04:30 WBC 6.8 RBC 3.58 L Hgb 10.4 L Hct 30.2 L MCV 84 MCH 29.0 MCHC 34.4 RDW 14.9 H Plt Count 196 Seg Neutrophils % 77.2 Lymphocytes % 14.4 Monocytes % 5.5 Eosinophils % 2.7 Basophils % 0.2 Absolute Neutrophils 5.3 Absolute Lymphocytes 1.0 Absolute Monocytes 0.4 Absolute Eosinophils 0.2 Absolute Basophils 0.0 Sodium 139.5 Potassium 4.0 Chloride 110 H Carbon Dioxide 23 Anion Gap 7 BUN 27 H Creatinine 0.84 Est GFR ( Amer) > 60 Est GFR (Non-Af Amer) > 60 Glucose 210 H Calcium 8.2 L Total Bilirubin 0.3 AST 43 ALT 33 Alkaline Phosphatase 112 Total Protein 4.8 L Albumin 2.5 L Impressions: Chest X-Ray 01/14/18 18:27 IMPRESSION: Similar chronic interstitial changes in the lung bases, left greater than right. Similar small area of nodularity in the right mid lung, more apparent on the current study. No consolidation or pleural effusion. Head CT 01/14/18 18:28 IMPRESSION: Chronic bilateral subdural collections. Involutional changes of aging. Chronic microvascular ischemia. No acute intracranial imaging findings. EVIDENCE OF ACUTE STROKE: NO. KUB X-Ray 01/16/18 00:00 IMPRESSION: 2 separate views of the abdomen were submitted 1 demonstrates the NG tube coiled in the esophagus. A separate film demonstrates an NG tube with the tip in the left upper quadrant most likely stomach. Timing of the films cannot be determined. Modified Barium Swallow 01/17/18 00:00 IMPRESSION: LARYNGEAL PENETRATION WITH THIN AND NECTAR THICK CONSISTENCIES, WITH POSSIBLE TRACE ASPIRATION WITH THIN BARIUM.PLEASE SEE SPEECH PATHOLOGIST REPORT FOR OTHER FINDINGS AND RECOMMENDATIONS. Status: Imported from PACS Assessment & Plan - Diagnosis (1) Failure to thrive in adult Is this a current diagnosis for this admission?: Yes Plan: Improving. Likely multifactoral -electrolyte derangement, dehydration, poor nutrition Clinical picture improved drastically with enteral feeding and IVF hydration Family states the patient's mental status has returned to baseline (2) Dysphagia Qualifiers: Dysphagia type: oropharyngeal phase Qualified Code(s): R13.12 - Dysphagia, oropharyngeal phase Is this a current diagnosis for this admission?: Yes Plan: Able to participate in modified barium swallow evaluation today Speech therapist recommends mechanical soft diet with thickened liquids Discontinued enteral feeding and free water flushes Staff attempting to feed patient at lunch and dinner today If able to tolerate will d/c NG If unable to tolerate, will need to resume enteral feeding Continue to re-evaluate swallowing ability (3) Hypernatremia Is this a current diagnosis for this admission?: Yes Plan: Resolved Na trending down 153-->139 Secondary to dehydration. Discontinued 1/2NS IVF Offer thickened liquids per speech therapist recommendation (4) Severe dehydration Is this a current diagnosis for this admission?: Yes Plan: Secondary to prolonged anorexia and dysphagia Improved with IVF and enteral feeding BUN decreased from 63-->27 (5) Acute renal failure Is this a current diagnosis for this admission?: Yes Plan: Resolved Initial creatinine 1.6 now improved to 0.89 Discontinued IVF Continue to monitor with daily chemistries (6) Pressure ulcer of both feet Is this a current diagnosis for this admission?: Yes Plan: Large pressure ulcers on the heels of both feet Left appears necrotic? Nursing staff has elevated lower extremities with pillows Protective silocone gauze placed over wounds Heel protector boots on both feet Consulting surgery to assess the need for debridement - Time Time Spent with patient: 15-24 minutes Medications reviewed and adjusted accordingly: Yes Anticipated discharge: Home Within: within 72 hours - Inpatient Certification Based on my medical assessment, after consideration of the patient's comorbidities, presenting symptoms, or acuity I expect that the services needed warrant INPATIENT care.: Yes I certify that my determination is in accordance with my understanding of Medicare's requirements for reasonable and necessary INPATIENT services [42 CFR 412.3e].: Yes Medical Necessity: Risk of Complication if Not Cared For in Hospital - Plan Summary Plan Summary: ATTEMPT PO FEEDING WITH LUNCH AND DINNER. REMOVE NG TOMORROW IF ABLE TO TOLERATE. IF NOT, WILL RESUME ENTERAL FEEDING. CONSULT SURGERY REGARDING B/L HEEL PRESSURE ULCERS
--- NOTE | 2018-01-17 17:20 | ST Inp Modified Barium Swallow ---
Medical Diagnosis - Medical Diagnoses Medical Diagnosis Description & ICD-10 Code(s): dysphagia R13.10 ST Inpatient MBS - General Date: 01/17/18 Date of Onset: 12/31/17 - per family report - History History Obtained From: Other - EMR -: Medical - Patient admitted on 01/14/18 with complaint of anorexia. Family reported coughing with PO intake for approximately 2 weeks. Prior medical history includes diabetes and advaned dementia. Patient was initially unable to participate in formal swallow eval due to mental status. NG tube was placed . Mental status has improved, patient now able to maintain alertness. Medications: Medications Reviewed Allergies: No known allergies - Subjective Current Nutritional Means: NG Current PO Diet: N/A (NPO) Current Symptoms: Poor intake, Coughing Pain: unable to communicate, no signs/symptoms of pain - Objective Assessment: Upright, Left Lateral - Food Trials Food Trials Used: Thin liquids, Honey-thickened liquids, [place] thick liquids, Pureed, Regular The Patient: fed by ST - Assessment Labial Function: Within Normal Limits Lingual Function: Within Functional Limits Mandibular Function: Within Functional Limits Dentition: Partial - Pharyngeal Stage Initiation of Pharyngeal Stage: Delayed Reflex Delay Time (seconds): 4 Decreased Laryngeal Elevation: No Reduced Velo-Pharyngeal Closure: no Reduced Pressure Generation: Yes Reduced Tongue Base Retraction: No Pre-Swallowing Pooling in Valleculae: Moderate Pre-Swallowing Pooling in Pyriforms: None Reduced Thyro-Hyiod Approximation: No Reduced Epiglottic Excursion: No Reduced Pharyngeal Peristalsis: No Multiple Swallows With: Cleared w/ Dry Swallow Post Swallow Residuals in Valleculae: Mild Post Swallow Residuals in Pyriforms: Moderate - Impression/Summary Laryngeal Penetration: Yes - with thin and nectar liquids, Cleared, during swallow, after swallow Tracheal Aspiration: no Patient Presents With: Pharyngeal stage dysph., Mild-Moderate Risk of Aspiration: Moderate Risk of Nutritional Compromise: Moderate Risk Due To: consistent penetration of thin and nectar liquids. - Recommendations NPO: free water Solid Diet Recommendations: Mechanical Soft, Ground Meat Liquid Diet Recommendations: Honey-Thick Strict Aspitarion Precautions: Yes Dysphagia Therapy with CATALYST UNIT OPERATOR: Follow Up PRN Recommended Techniques: Fully Upright During Meal, Small Bites and Sips Supervision: requires assistance Other Recommendations: Recommend family education on thickened liquids. May benefit from follow up MBSS as inpatient or outpatient status to re-evaluate liquid textures. Plan to see x1 this week and follow up x1 next week if still admitted. - Time Total Time: 35 Total Timed Minutes: 35
[2018-01-17] MEDS ORDERED: (PENDING PHARMACY ID) (Donepezil Hcl [Aricept] 10 MG) PO SCH (18:00)
[2018-01-17] MEDS: DONEPEZIL HCL 5 MG TABLET PO SCH (18:19)
[2018-01-17] MEDS: MEMANTINE HCL 10 MG TABLET PO SCH (18:19)
[2018-01-17] MEDS: INSULIN GLARGINE,HUM.REC.ANLOG 300 UNIT/3 ML INSULN.PEN SUBCUT SCH (22:40)
--- NOTE | 2018-01-17 23:53 | PDOC CONSULTATION ---
History of Present Illness Admission Date/PCP: 01/14/18 23:28 LUIS KEVIN MD Patient complains of: Asked to evaluate bilateral heel ulcers History of Present Illness: REDDY ROSAS is a 87 year old male with advanced dementia currently in the hospital for failure to thrive with poor p.o. intake and weight loss. Patient has been bedbound unable to walk and has developed bilateral heel ulcers. Patient is diabetic. No prior debridements of the ulcers. Patient does not converse. Past Medical History Cardiac Medical History: Reports: Hypertension Denies: Coronary Artery Disease Endocrine Medical History: Reports: Diabetes Mellitus Type 1 Psychiatric Medical History: Reports: Dementia Past Surgical History Past Surgical History: Reports: Orthopedic Surgery Social History Lives with: Family Smoking Status: Never Smoker Frequency of Alcohol Use: None Hx Recreational Drug Use: No Drugs: None Hx Prescription Drug Abuse: No - Advance Directive Resuscitation Status: Do Not Resuscitate Family History Family History: Other - Hypertension, negative for Alzheimer's Parental Family History Reviewed: No Children Family History Reviewed: No Sibling(s) Family History Reviewed.: No Medication/Allergy Home Medications: Donepezil HCl [Aricept] 10 mg PO QPM 01/16/18 Haloperidol [Haldol 5 mg Tablet] 5 mg PO BIDP PRN 01/16/18 Insulin Glargine,Hum.rec.anlog [Basaglar Kwikpen U-100] 40 units SQ QHS Memantine HCl [Namenda 10 mg Tablet] 10 mg PO BID 01/16/18 Metformin HCl [Glucophage 500 mg Tablet] 500 mg PO BIDBS 01/16/18 Nystatin [Mycostatin Cream 15 gm] 1 applic TOP QID 01/16/18 Sertraline HCl [Zoloft 50 mg Tablet] 50 mg PO DAILY 01/16/18 Valsartan/Hydrochlorothiazide [Valsartan-Hctz 80-12.5 mg Tab] 1 tab PO DAILY Zolpidem Tartrate [Ambien] 10 mg PO QHS 01/16/18 Allergies/Adverse Reactions: No Known Allergies Allergy (Unverified 11/02/17 12:10) Physical Exam Vital Signs: Temp Pulse Resp BP Pulse Ox 98.4 F 74 13 126/62 H 99 01/17/18 19:58 01/17/18 19:58 01/17/18 19:58 01/17/18 19:58 01/17/18 19:58 Intake & Output 01/16/18 01/17/18 01/18/18 06:59 06:59 06:59 Intake Total 3000 840 872 Balance 3000 840 872 Weight 46.1 kg 51.1 kg General appearance: PRESENT: no acute distress, thin - Cachectic, other - Patient awake but does not speak and does not obey commands Respiratory exam: PRESENT: clear to auscultation tanner Cardiovascular exam: PRESENT: RRR GI/Abdominal exam: PRESENT: other - Soft with no apparent tenderness to palpation Extremities exam: PRESENT: other - Palpable pedal pulse on the right but not palpable on the left. On the left no popliteal pulse palpable but femoral pulse is 2+. There is no blue toes nor evidence of toe ischemia. Bilaterally patient has dark heel ulcers with no surrounding erythema no drainage. Unable to determine depth at this time. Neurological exam: PRESENT: awake Skin exam: PRESENT: warm Results Laboratory Results: 01/17/18 04:30 01/17/18 04:30 01/17/18 01/17/18 04:30 04:30 WBC 6.8 RBC 3.58 L Hgb 10.4 L Hct 30.2 L MCV 84 MCH 29.0 MCHC 34.4 RDW 14.9 H Plt Count 196 Seg Neutrophils % 77.2 Lymphocytes % 14.4 Monocytes % 5.5 Eosinophils % 2.7 Basophils % 0.2 Absolute Neutrophils 5.3 Absolute Lymphocytes 1.0 Absolute Monocytes 0.4 Absolute Eosinophils 0.2 Absolute Basophils 0.0 Sodium 139.5 Potassium 4.0 Chloride 110 H Carbon Dioxide 23 Anion Gap 7 BUN 27 H Creatinine 0.84 Est GFR ( Amer) > 60 Est GFR (Non-Af Amer) > 60 Glucose 210 H Calcium 8.2 L Total Bilirubin 0.3 AST 43 ALT 33 Alkaline Phosphatase 112 Total Protein 4.8 L Albumin 2.5 L Impressions: Chest X-Ray 01/14/18 18:27 IMPRESSION: Similar chronic interstitial changes in the lung bases, left greater than right. Similar small area of nodularity in the right mid lung, more apparent on the current study. No consolidation or pleural effusion. Head CT 01/14/18 18:28 IMPRESSION: Chronic bilateral subdural collections. Involutional changes of aging. Chronic microvascular ischemia. No acute intracranial imaging findings. EVIDENCE OF ACUTE STROKE: NO. KUB X-Ray 01/16/18 00:00 IMPRESSION: 2 separate views of the abdomen were submitted 1 demonstrates the NG tube coiled in the esophagus. A separate film demonstrates an NG tube with the tip in the left upper quadrant most likely stomach. Timing of the films cannot be determined. Modified Barium Swallow 01/17/18 00:00 IMPRESSION: LARYNGEAL PENETRATION WITH THIN AND NECTAR THICK CONSISTENCIES, WITH POSSIBLE TRACE ASPIRATION WITH THIN BARIUM.PLEASE SEE SPEECH PATHOLOGIST REPORT FOR OTHER FINDINGS AND RECOMMENDATIONS. Assessment & Plan - Diagnosis (1) Decubitus ulcer of heel, bilateral Is this a current diagnosis for this admission?: Yes Plan: Pressure ulcers in patient with advanced dementia with cachexia and diabetes. Unable to determine depth at this time. Patient would benefit from local debridement. Will discuss with hospitalist tomorrow about fitness for him to undergo anesthesia for his surgery. There is no evidence of active infection of his heels and it is not an emergency. Recommend as you are doing avoid prolonged pressure on the heels.
[2018-01-18] MEDS ORDERED: LORAZEPAM INJ 2 MG/1 ML VIAL IV ONE (03:00)
[2018-01-18 05:22] LABS: HEMATOCRIT 31.5 % (37.9-51.0); HEMOGLOBIN 10.8 g/dL (13.5-17.0); MEAN CORPUSCULAR HEMOGLOBIN 28.8 pg (27.0-33.4); MEAN CORPUSCULAR HGB CONC 34.3 g/dL (32.0-36.0); MEAN CORPUSCULAR VOLUME 84 fl (80-97); PLATELET COUNT 211 10^3/uL (150-450); RED BLOOD COUNT 3.76 10^6/uL (4.35-5.55); RED CELL DISTRIBUTION WIDTH 14.9 % (11.5-14.0); WHITE BLOOD COUNT 8.1 10^3/uL (4.0-10.5)
[2018-01-18] MEDS: HEPARIN SOD (PORCINE) 5,000 UNIT/ML 1 ML SYRINGE SUBCUT SCH (05:33)
[2018-01-18 05:46] LABS: ALANINE AMINOTRANSFERASE 26 U/L (21-72); ALBUMIN 2.7 g/dL (3.5-5.0); ALKALINE PHOSPHATASE 105 U/L (38-126); ANION GAP 8 (5-19); ASPARTATE AMINO TRANSFERASE 39 U/L (17-59); BILIRUBIN,DIRECT 0.2 mg/dL (0.0-0.4); BILIRUBIN,TOTAL 0.4 mg/dL (0.2-1.3); BLOOD UREA NITROGEN 23 mg/dL (7-20); CALCIUM 8.4 mg/dL (8.4-10.2); CARBON DIOXIDE 26 mmol/L (22-30); CHLORIDE 108 mmol/L (98-107); GLUCOSE 56 mg/dL (75-110); POTASSIUM 3.8 mmol/L (3.6-5.0); SODIUM 141.7 mmol/L (137-145); TOTAL PROTEIN 5.1 g/dL (6.3-8.2)
[2018-01-18] MEDS ORDERED: DEXTROSE 5%-1/2 NORMAL SALINE 1,000 ML IV PRN (08:06)
[2018-01-18] MEDS: MEMANTINE HCL 10 MG TABLET PO SCH ×2 (10:00→20:06)
[2018-01-18] MEDS: VALSARTAN 80 MG TABLET PO SCH (10:00)
[2018-01-18] MEDS: HYDROCHLOROTHIAZIDE 12.5 MG TABLET PO SCH (10:00)
--- NOTE | 2018-01-18 10:03 | PDOC PROGRESS REPORT ---
Subjective Progress Note for:: 01/18/18 Subjective:: demented, nonresponsive, alert Reason For Visit: DYSPHAGIA, ARF, DEHYDRATION, DEMENTIA HTN Physical Exam Vital Signs: Temp Pulse Resp BP Pulse Ox 98.0 F 71 16 124/58 L 100 01/18/18 08:11 01/18/18 08:11 01/18/18 08:11 01/18/18 08:11 01/18/18 08:11 Intake & Output 01/17/18 01/18/18 01/19/18 06:59 06:59 06:59 Intake Total 840 872 Output Total 450 Balance 840 422 Weight 51.1 kg 51.1 kg General appearance: PRESENT: no acute distress Musculoskeletal exam: PRESENT: other - bilateral heel necrosis @ 4 cm in diameter Results Laboratory Results: 01/18/18 04:32 01/18/18 04:32 01/18/18 01/18/18 04:32 04:32 WBC 8.1 RBC 3.76 L Hgb 10.8 L Hct 31.5 L MCV 84 MCH 28.8 MCHC 34.3 RDW 14.9 H Plt Count 211 Sodium 141.7 Potassium 3.8 Chloride 108 H Carbon Dioxide 26 Anion Gap 8 BUN 23 H Creatinine 0.84 Est GFR ( Amer) > 60 Est GFR (Non-Af Amer) > 60 Glucose 56 L Calcium 8.4 Total Bilirubin 0.4 AST 39 ALT 26 Alkaline Phosphatase 105 Total Protein 5.1 L Albumin 2.7 L Impressions: Chest X-Ray 01/14/18 18:27 IMPRESSION: Similar chronic interstitial changes in the lung bases, left greater than right. Similar small area of nodularity in the right mid lung, more apparent on the current study. No consolidation or pleural effusion. Head CT 01/14/18 18:28 IMPRESSION: Chronic bilateral subdural collections. Involutional changes of aging. Chronic microvascular ischemia. No acute intracranial imaging findings. EVIDENCE OF ACUTE STROKE: NO. KUB X-Ray 01/16/18 00:00 IMPRESSION: 2 separate views of the abdomen were submitted 1 demonstrates the NG tube coiled in the esophagus. A separate film demonstrates an NG tube with the tip in the left upper quadrant most likely stomach. Timing of the films cannot be determined. Modified Barium Swallow 01/17/18 00:00 IMPRESSION: LARYNGEAL PENETRATION WITH THIN AND NECTAR THICK CONSISTENCIES, WITH POSSIBLE TRACE ASPIRATION WITH THIN BARIUM.PLEASE SEE SPEECH PATHOLOGIST REPORT FOR OTHER FINDINGS AND RECOMMENDATIONS. Assessment & Plan - Diagnosis (1) Decubitus ulcer of heel, bilateral Is this a current diagnosis for this admission?: Yes - Plan Summary Plan Summary: A/ Bilateral heel ulcer Dementia P/ bilateral heel ulcer debridment Hold TF Increase IVF 100 mL/hr Procedure, risk, benefits explained to the son including the possibilty of heel bone exposure which migh lead to possible future amputation. He understands, his quesitons were answered, and he decides to proceed
[2018-01-18] MEDS: DEXTROSE 5%-1/2 NORMAL SALINE 1,000 ML IV PRN ×2 (10:12→18:21)
[2018-01-18] MEDS: NYSTATIN CREAM 15 GM TOP SCH ×4 (14:18→22:05)
[2018-01-18] MEDS ORDERED: METRONIDAZOLE RTU 500 MG/NS 100 ML IV ONE (15:38)
[2018-01-18] MEDS ORDERED: CEFTRIAXONE 1 GM/D5W RTU 1 GM/50 ML RTUPB IV SCH (16:00)
[2018-01-18] MEDS ORDERED: PROPOFOL INJ 200 MG/20 ML VIAL IV ONE (16:07)
[2018-01-18] MEDS ORDERED: FENTANYL CITRATE INJ/PF 100 MCG/2 ML AMPUL ONE (16:07)
[2018-01-18] MEDS ORDERED: KETAMINE HCL INJ 500 MG/10 ML VIAL ONE (16:07)
[2018-01-18] MEDS ORDERED: MIDAZOLAM 2 MG/2 ML INJ ONE (16:07)
[2018-01-18] MEDS ORDERED: ONDANSETRON HCL INJ/PF 4 MG/2 ML SDV ONE (16:07)
--- NOTE | 2018-01-18 16:32 | PDOC PROGRESS REPORT ---
Subjective Progress Note for:: 01/18/18 Subjective:: REDDY ROSAS is a 87 year old male with a past medical history of diabetes, advanced dementia, nonverbal requiring 100% care by family members at bedside. He presents with 1 week of cough with eating and drinking, significant reluctance of p.o. intake. Admitted to hospitalist for hyponatremia, acute renal failure, dehydration and hyperglycemia. The patient was seen this morning on rounds. He is sleeping and difficult to arouse, but he had just received ativan. Surgery evaluated the patient's bilateral heel pressure ulcers and agreed that they needed to be debrided. The patient is currently n.p.o., awaiting OR this afternoon. Reason For Visit: DYSPHAGIA, ARF, DEHYDRATION, DEMENTIA HTN Physical Exam Vital Signs: Temp Pulse Resp BP Pulse Ox 98.0 F 71 16 129/68 H 98 01/18/18 13:47 01/18/18 14:00 01/18/18 13:47 01/18/18 12:13 01/18/18 13:47 Intake & Output 01/17/18 01/18/18 01/19/18 06:59 06:59 06:59 Intake Total 840 872 0 Output Total 450 Balance 840 422 0 Weight 51.1 kg 51.1 kg General appearance: PRESENT: thin Head exam: PRESENT: atraumatic Eye exam: PRESENT: conjunctiva pink, PERRLA Mouth exam: PRESENT: moist, tongue midline Teeth exam: PRESENT: poor dentation Neck exam: PRESENT: full ROM Respiratory exam: PRESENT: clear to auscultation tanner, symmetrical, unlabored Cardiovascular exam: PRESENT: +S1, +S2 Pulses: PRESENT: normal radial pulses, +1 pedal pulses bilateral Vascular exam: PRESENT: pallor GI/Abdominal exam: PRESENT: normal bowel sounds, soft. ABSENT: tenderness Rectal exam: PRESENT: deferred Extremities exam: ABSENT: full ROM, pedal edema Musculoskeletal exam: ABSENT: ambulatory, full ROM Neurological exam: PRESENT: alert, awake, oriented to person, oriented to place , oriented to time, oriented to situation Psychiatric exam: PRESENT: appropriate affect Skin exam: PRESENT: dry, intact, normal color Results Laboratory Results: 01/18/18 04:32 01/18/18 04:32 01/18/18 01/18/18 04:32 04:32 WBC 8.1 RBC 3.76 L Hgb 10.8 L Hct 31.5 L MCV 84 MCH 28.8 MCHC 34.3 RDW 14.9 H Plt Count 211 Sodium 141.7 Potassium 3.8 Chloride 108 H Carbon Dioxide 26 Anion Gap 8 BUN 23 H Creatinine 0.84 Est GFR ( Amer) > 60 Est GFR (Non-Af Amer) > 60 Glucose 56 L Calcium 8.4 Total Bilirubin 0.4 AST 39 ALT 26 Alkaline Phosphatase 105 Total Protein 5.1 L Albumin 2.7 L Impressions: Chest X-Ray 01/14/18 18:27 IMPRESSION: Similar chronic interstitial changes in the lung bases, left greater than right. Similar small area of nodularity in the right mid lung, more apparent on the current study. No consolidation or pleural effusion. Head CT 01/14/18 18:28 IMPRESSION: Chronic bilateral subdural collections. Involutional changes of aging. Chronic microvascular ischemia. No acute intracranial imaging findings. EVIDENCE OF ACUTE STROKE: NO. KUB X-Ray 01/16/18 00:00 IMPRESSION: 2 separate views of the abdomen were submitted 1 demonstrates the NG tube coiled in the esophagus. A separate film demonstrates an NG tube with the tip in the left upper quadrant most likely stomach. Timing of the films cannot be determined. Modified Barium Swallow 01/17/18 00:00 IMPRESSION: LARYNGEAL PENETRATION WITH THIN AND NECTAR THICK CONSISTENCIES, WITH POSSIBLE TRACE ASPIRATION WITH THIN BARIUM.PLEASE SEE SPEECH PATHOLOGIST REPORT FOR OTHER FINDINGS AND RECOMMENDATIONS. Status: Imported from PACS Assessment & Plan - Diagnosis (1) Failure to thrive in adult Is this a current diagnosis for this admission?: Yes Plan: Improving. Likely multifactoral -electrolyte derangement, dehydration, poor nutrition Clinical picture improved drastically with enteral feeding and IVF hydration Family states the patient's mental status has returned to baseline (2) Dysphagia Qualifiers: Dysphagia type: oropharyngeal phase Qualified Code(s): R13.12 - Dysphagia, oropharyngeal phase Is this a current diagnosis for this admission?: Yes Plan: Able to participate in modified barium swallow evaluation today Speech therapist recommends mechanical soft diet with thickened liquids Currently n.p.o. 4-hour this afternoon Continue to re-evaluate swallowing ability (3) Hypernatremia Is this a current diagnosis for this admission?: Yes Plan: Resolved Na trending down 153-->139 Secondary to dehydration Discontinued 1/2NS IVF Offer thickened liquids per speech therapist recommendation (4) Severe dehydration Is this a current diagnosis for this admission?: Yes Plan: Secondary to prolonged anorexia and dysphagia Improved with IVF and enteral feeding BUN decreased from 63-->27 (5) Acute renal failure Is this a current diagnosis for this admission?: Yes Plan: Resolved Initial creatinine 1.6 now improved to 0.89 Continue to monitor with daily chemistries (6) Pressure ulcer of both feet Is this a current diagnosis for this admission?: Yes Plan: Large pressure ulcers on the heels of both feet Left appears necrotic? Nursing staff has elevated lower extremities with pillows Protective silocone gauze placed over wounds Heel protector boots on both feet Surgery consulted for debridement. Dr. Salazar agrees to take patient to the OR today. - Time Time Spent with patient: 15-24 minutes Medications reviewed and adjusted accordingly: Yes Anticipated discharge: Home Within: within 72 hours - Inpatient Certification Based on my medical assessment, after consideration of the patient's comorbidities, presenting symptoms, or acuity I expect that the services needed warrant INPATIENT care.: Yes I certify that my determination is in accordance with my understanding of Medicare's requirements for reasonable and necessary INPATIENT services [42 CFR 412.3e].: Yes Medical Necessity: Need Close Monitoring Due to Risk of Patient Decompensation, Risk of Complication if Not Cared For in Hospital - Plan Summary Plan Summary: OR this afternoon at 4 wound debridement. Reassess swallowing ability later tonight/tomorrow.
[2018-01-18] MEDS ORDERED: LIDOCAINE 1%/EPINEPHRINE INJ 20 ML VIAL ONE (16:52)
[2018-01-18] MEDS ORDERED: METRONIDAZOLE 500 MG/NS RTU 500 MG/100 ML RTUPB IV ONE (16:58)
[2018-01-18] MEDS ORDERED: BACITRACIN ZINC OINTMENT 15 GM ONE (17:09)
--- NOTE | 2018-01-18 17:29 | Operative Report ---
Nonrecallable Operative Report DATE OF SURGERY: 01/18/18 PREOPERATIVE DIAGNOSIS: full thickness necrosis heel bilaterally POSTOPERATIVE DIAGNOSIS: 1) Right heel pressure sore grade3. 2) Left heel pressure sore grade3 OPERATION: 1) right heel full thickness sharp debridment down to fat 6.0 cm diameter. 2) left heel full thickness sharp debridment down to bone 6.0 cm diameter SURGEON: KARTHIK MOSER ANESTHESIA: LMAC - plus 40 mL 1% lidocaine plus epinephrine TISSUE REMOVED OR ALTERED: right and left heel soft tissue COMPLICATIONS: none ESTIMATED BLOOD LOSS: < 5 mL INTRAOPERATIVE FINDINGS: necrotic skin and subcutaneous fat bilateral; exposed bone on the left side PROCEDURE: see dictation
--- NOTE | 2018-01-18 17:52 | OPERATIVE REPORT E ---
Operative Report NAME: REDDY ROSAS : 1930 AGE: 87Y DATE OF SURGERY: 01/18/2018 ROOM: 538 PREOPERATIVE DIAGNOSIS: BILATERAL GRADE III TO IV PRESSURE SORE, HEEL. POSTOPERATIVE DIAGNOSIS: BILATERAL GRADE III TO IV PRESSURE SORE, HEEL. OPERATION: Full-thickness debridement right heel down to subcutaneous fat measuring 6 cm in diameter. Full-thickness debridement to calcaneous bone measuring 6 cm in diameter on the left heel. SURGEON: KARTHIK MOSER M.D. HEEL PADDER: None. ESTIMATED BLOOD LOSS: Minimal. FLUIDS: 400 mL crystalloids Urine output: not availabel EBL: less than 5 mL COMPLICATIONS: None. ANESTHESIA: MAC plus 40 mL of 1% lidocaine with epinephrine. INDICATIONS/FINDINGS: This is an 87-year-old male who presented to the emergency room with confusion, bilateral heel soft tissue necrosis. He is bedridden. The patient is scheduled to undergo debridement of both heels. Procedure, risks, benefits, and complications explained to the family. They understood and decided to proceed. PROCEDURE: In the operating room, the patient was placed in the lateral decubitus position. IV sedation provided by the anesthesiologist. Both feet were prepped and draped in the usual fashion. Each necrotic heel skin was treated similarly. A circumferential incision incorporating a small amount of normal skin was done down to fat, and the entire eschar was excised down to fat on the right side. The fascia was found to be healthy with satisfactory blood flow. On the left side, the fat was found to be necrotic down to bone. Therefore, exposed calcaneous bone was identified on the left. The specimens were sent to Pathology and cultures for aerobic and anaerobic and gram stain were obtained from each specimen. Both debrided heels were then irrigated with normal saline and covered with antibiotic ointment, Xeroform gauze, 4 x 4, Kerlix, and Giuliano bandage. The patient tolerated the procedure well and was transferred to the recovery room in satisfactory condition. DICTATING PHYSICIAN: KARTHIK MOSER M.D. [id number] PHY#: [id number] ID: [id number] JOB#: [id number] ACCT: [id number] cc:KARTHIK MOSER M.D. > [facility]
[2018-01-18] MEDS ORDERED: NEOMY/BACITRAC ZN/POLY OINT 15 GM TP PRN (17:54)
[2018-01-18] MEDS ORDERED: CEFTRIAXONE SODIUM 1,000 MG in DEXTROSE 5%-WATER 50 ML IV SCH (18:00)
[2018-01-18] MEDS ORDERED: 1/2 NORMAL SALINE 1,000 ML IV PRN (18:55)
[2018-01-18] MEDS: DONEPEZIL HCL 5 MG TABLET PO SCH (20:06)
[2018-01-18] MEDS: SERTRALINE HCL 50 MG TABLET PO SCH (20:07)
[2018-01-18] MEDS: METRONIDAZOLE 500 MG/NS RTU 500 MG/100 ML RTUPB IV SCH (22:05)
[2018-01-18] MEDS: INSULIN GLARGINE,HUM.REC.ANLOG 300 UNIT/3 ML INSULN.PEN SUBCUT SCH (23:45)
[2018-01-19] MEDS ORDERED: MORPHINE SULFATE 10 MG/ML INJ IV PRN (01:53)
[2018-01-19] MEDS: METRONIDAZOLE 500 MG/NS RTU 500 MG/100 ML RTUPB IV SCH ×3 (05:33→21:39)
[2018-01-19] MEDS: HEPARIN SOD (PORCINE) 5,000 UNIT/ML 1 ML SYRINGE SUBCUT SCH ×2 (05:35→18:20)
[2018-01-19 06:53] LABS: HEMATOCRIT 30.2 % (37.9-51.0); HEMOGLOBIN 10.5 g/dL (13.5-17.0); MEAN CORPUSCULAR HEMOGLOBIN 29.1 pg (27.0-33.4); MEAN CORPUSCULAR HGB CONC 34.7 g/dL (32.0-36.0); MEAN CORPUSCULAR VOLUME 84 fl (80-97); PLATELET COUNT 167 10^3/uL (150-450); RED BLOOD COUNT 3.61 10^6/uL (4.35-5.55); RED CELL DISTRIBUTION WIDTH 15.1 % (11.5-14.0); WHITE BLOOD COUNT 6.2 10^3/uL (4.0-10.5)
[2018-01-19 07:23] LABS: ALANINE AMINOTRANSFERASE 34 U/L (21-72); ALBUMIN 2.5 g/dL (3.5-5.0); ALKALINE PHOSPHATASE 98 U/L (38-126); ANION GAP 6 (5-19); ASPARTATE AMINO TRANSFERASE 51 U/L (17-59); BILIRUBIN,DIRECT 0.1 mg/dL (0.0-0.4); BILIRUBIN,TOTAL 0.2 mg/dL (0.2-1.3); BLOOD UREA NITROGEN 18 mg/dL (7-20); CARBON DIOXIDE 25 mmol/L (22-30); CHLORIDE 108 mmol/L (98-107); GLUCOSE 212 mg/dL (75-110); POTASSIUM 4.2 mmol/L (3.6-5.0); TOTAL PROTEIN 4.8 g/dL (6.3-8.2)
[2018-01-19] MEDS: MEMANTINE HCL 10 MG TABLET PO SCH ×2 (10:41→18:19)
[2018-01-19] MEDS: HYDROCHLOROTHIAZIDE 12.5 MG TABLET PO SCH (10:41)
[2018-01-19] MEDS: VALSARTAN 80 MG TABLET PO SCH (10:41)
[2018-01-19] MEDS: SERTRALINE HCL 50 MG TABLET PO SCH (10:41)
[2018-01-19] MEDS: NYSTATIN CREAM 15 GM TOP SCH ×4 (10:43→21:42)
[2018-01-19] MEDS: CEFTRIAXONE SODIUM 2,000 MG in DEXTROSE 5%-WATER 100 ML IV SCH (10:46)
[2018-01-19] MEDS: INSULIN LISPRO 100 UNIT/ML 3 ML VIAL SUBCUT PRN ×3 (11:06→18:19)
--- NOTE | 2018-01-19 13:12 | PDOC PROGRESS REPORT ---
Subjective Progress Note for:: 01/19/18 Subjective:: Patient poorly responsive, demented, lower extremity rigidity Reason For Visit: DYSPHAGIA, ARF, DEHYDRATION, DEMENTIA HTN Physical Exam Vital Signs: Temp Pulse Resp BP Pulse Ox 97.9 F 76 16 120/64 100 01/19/18 11:45 01/19/18 11:45 01/19/18 11:45 01/19/18 11:45 01/19/18 11:45 Intake & Output 01/18/18 01/19/18 01/20/18 06:59 06:59 06:59 Intake Total 872 1565 1360 Output Total 450 5 Balance 422 1560 1360 Weight 51.1 kg 52.2 kg Extremities exam: PRESENT: other - Right heel= pink debrided tissue, good active beelding, no cellulitis Left heel= pink debrided tissue,good active bleeding, exposed calcaneous, no cellulitis Results Laboratory Results: 01/19/18 06:43 01/19/18 06:43 01/19/18 01/19/18 06:43 06:43 WBC 6.2 RBC 3.61 L Hgb 10.5 L Hct 30.2 L MCV 84 MCH 29.1 MCHC 34.7 RDW 15.1 H Plt Count 167 Sodium 139.0 Potassium 4.2 Chloride 108 H Carbon Dioxide 25 Anion Gap 6 BUN 18 Creatinine 0.83 Est GFR ( Amer) > 60 Est GFR (Non-Af Amer) > 60 Glucose 212 H Calcium 8.0 L Total Bilirubin 0.2 AST 51 ALT 34 Alkaline Phosphatase 98 Total Protein 4.8 L Albumin 2.5 L Impressions: Chest X-Ray 01/14/18 18:27 IMPRESSION: Similar chronic interstitial changes in the lung bases, left greater than right. Similar small area of nodularity in the right mid lung, more apparent on the current study. No consolidation or pleural effusion. Head CT 01/14/18 18:28 IMPRESSION: Chronic bilateral subdural collections. Involutional changes of aging. Chronic microvascular ischemia. No acute intracranial imaging findings. EVIDENCE OF ACUTE STROKE: NO. KUB X-Ray 01/16/18 00:00 IMPRESSION: 2 separate views of the abdomen were submitted 1 demonstrates the NG tube coiled in the esophagus. A separate film demonstrates an NG tube with the tip in the left upper quadrant most likely stomach. Timing of the films cannot be determined. Modified Barium Swallow 01/17/18 00:00 IMPRESSION: LARYNGEAL PENETRATION WITH THIN AND NECTAR THICK CONSISTENCIES, WITH POSSIBLE TRACE ASPIRATION WITH THIN BARIUM.PLEASE SEE SPEECH PATHOLOGIST REPORT FOR OTHER FINDINGS AND RECOMMENDATIONS. Assessment & Plan - Diagnosis (1) Decubitus ulcer of heel, bilateral Is this a current diagnosis for this admission?: Yes - Plan Summary Plan Summary: A/ POD#1 after bilateral sharp heel debridment Right heel= pink debrided tissue, good active beelding, no cellulitis Left heel= pink debrided tissue,good active bleeding, exposed calcaneous, no cellulitis Patient mental status is a concern as he is not very responsive, sleepy but arousable left heel wound management discussed with patient's jhson P/ 1) replace bilateral heel dressing daily 2) Will discuss with family future plan for left heel wound management as the calcaneous bone is exposed: conservative management would be preferable, as left BKA could result in patient severe postoperative complications including . However, conservative management of this type of wound would guarantee healing.
[2018-01-19] MEDS: DONEPEZIL HCL 5 MG TABLET PO SCH (18:19)
--- NOTE | 2018-01-19 20:49 | PDOC PROGRESS REPORT ---
Subjective Progress Note for:: 01/19/18 Subjective:: REDDY ROSAS is a 87 year old male with a past medical history of diabetes, advanced dementia, nonverbal requiring 100% care by family members at bedside. He presents with 1 week of cough with eating and drinking, significant reluctance of p.o. intake. Admitted to hospitalist for hyponatremia, acute renal failure, dehydration and hyperglycemia. The patient was seen this morning on rounds. He is sleeping but easy to arouse. The patient is minimally interactive today, his speech is slurred and he is not as alert as he has been in days past. Son reports the patient received a dose of PO Haldol overnight and believes the patient's current state is related to the medication. Discussed the possibility of a PEG vs. palliative care if the patient continues to fail nursing swallow evaluations. POD#1 bilateral heel debridment. Empiric antibiotic coverage per surgery. Patient has remained afebrile. Reason For Visit: DYSPHAGIA, ARF, DEHYDRATION, DEMENTIA HTN Physical Exam Vital Signs: Temp Pulse Resp BP Pulse Ox 98.2 F 84 18 109/53 L 100 01/19/18 16:00 01/19/18 19:00 01/19/18 16:00 01/19/18 16:00 01/19/18 16:00 Intake & Output 01/18/18 01/19/18 01/20/18 06:59 06:59 06:59 Intake Total 872 1565 2460 Output Total 450 5 Balance 422 1560 2460 Weight 51.1 kg 52.2 kg General appearance: PRESENT: thin Head exam: PRESENT: atraumatic Eye exam: PRESENT: conjunctiva pink, PERRLA Mouth exam: PRESENT: moist, tongue midline Teeth exam: PRESENT: poor dentation Neck exam: PRESENT: full ROM Respiratory exam: PRESENT: clear to auscultation tanner, symmetrical, unlabored Cardiovascular exam: PRESENT: +S1, +S2 Pulses: PRESENT: normal radial pulses GI/Abdominal exam: PRESENT: normal bowel sounds, soft. ABSENT: tenderness Rectal exam: PRESENT: deferred Extremities exam: ABSENT: full ROM Musculoskeletal exam: PRESENT: normal inspection. ABSENT: ambulatory, full ROM Neurological exam: PRESENT: oriented to person. ABSENT: alert, oriented to place, oriented to time, oriented to situation Skin exam: PRESENT: dry, pallor. ABSENT: intact - open heel ulcers s/p debridement Results Laboratory Results: 01/19/18 06:43 01/19/18 06:43 01/19/18 01/19/18 06:43 06:43 WBC 6.2 RBC 3.61 L Hgb 10.5 L Hct 30.2 L MCV 84 MCH 29.1 MCHC 34.7 RDW 15.1 H Plt Count 167 Sodium 139.0 Potassium 4.2 Chloride 108 H Carbon Dioxide 25 Anion Gap 6 BUN 18 Creatinine 0.83 Est GFR ( Amer) > 60 Est GFR (Non-Af Amer) > 60 Glucose 212 H Calcium 8.0 L Total Bilirubin 0.2 AST 51 ALT 34 Alkaline Phosphatase 98 Total Protein 4.8 L Albumin 2.5 L Impressions: Chest X-Ray 01/14/18 18:27 IMPRESSION: Similar chronic interstitial changes in the lung bases, left greater than right. Similar small area of nodularity in the right mid lung, more apparent on the current study. No consolidation or pleural effusion. Head CT 01/14/18 18:28 IMPRESSION: Chronic bilateral subdural collections. Involutional changes of aging. Chronic microvascular ischemia. No acute intracranial imaging findings. EVIDENCE OF ACUTE STROKE: NO. KUB X-Ray 01/16/18 00:00 IMPRESSION: 2 separate views of the abdomen were submitted 1 demonstrates the NG tube coiled in the esophagus. A separate film demonstrates an NG tube with the tip in the left upper quadrant most likely stomach. Timing of the films cannot be determined. Modified Barium Swallow 01/17/18 00:00 IMPRESSION: LARYNGEAL PENETRATION WITH THIN AND NECTAR THICK CONSISTENCIES, WITH POSSIBLE TRACE ASPIRATION WITH THIN BARIUM.PLEASE SEE SPEECH PATHOLOGIST REPORT FOR OTHER FINDINGS AND RECOMMENDATIONS. Status: Imported from PACS Assessment & Plan - Diagnosis (1) Failure to thrive in adult Is this a current diagnosis for this admission?: Yes Plan: Likely multifactoral -electrolyte derangement, dehydration, poor nutrition The patient's mental status drastically improved with enteral feeding and hydration Today, patient is lethargic and answering minimal questions - likely due to sedation from PO haldol administered Plan to d/c all sedatives Encourage day/night cues (2) Dysphagia Qualifiers: Dysphagia type: oropharyngeal phase Qualified Code(s): R13.12 - Dysphagia, oropharyngeal phase Is this a current diagnosis for this admission?: Yes Plan: Able to participate in modified barium swallow evaluation Speech therapist recommends mechanical soft diet with thickened liquids Nursing staff admits that patient often clears his throat/coughs after a few bites of food at each meal Patient will likely need another modified barium swallow next week to re- evaluate Discussed the options of PEG vs. palliative care if the patient continues to fail repeated swallow evaluations (3) Hypernatremia Is this a current diagnosis for this admission?: Yes Plan: Resolved Na trending down 153-->139 Secondary to dehydration Discontinued 1/2NS IVF Offer thickened liquids per speech therapist recommendation (4) Severe dehydration Is this a current diagnosis for this admission?: Yes Plan: Secondary to prolonged anorexia and dysphagia Improved with IVF and enteral feeding BUN decreased from 63-->27 (5) Acute renal failure Is this a current diagnosis for this admission?: Yes Plan: Resolved Initial creatinine 1.6 now improved to 0.89 Continue to monitor with daily chemistries (6) Pressure ulcer of both feet Is this a current diagnosis for this admission?: Yes Plan: Large pressure ulcers on the heels of both feet Nursing staff has elevated lower extremities with pillows Surgery preformed debridement. Now POD#1 - Time Time Spent with patient: 15-24 minutes Medications reviewed and adjusted accordingly: Yes Anticipated discharge: Home, SNF Within: within 72 hours - Inpatient Certification Based on my medical assessment, after consideration of the patient's comorbidities, presenting symptoms, or acuity I expect that the services needed warrant INPATIENT care.: Yes I certify that my determination is in accordance with my understanding of Medicare's requirements for reasonable and necessary INPATIENT services [42 CFR 412.3e].: Yes Medical Necessity: Need for IV Antibiotics - Plan Summary Plan Summary: Continue enteral feeding. Monitor swallow eval. Trend electrolytes daily.
[2018-01-19] MEDS: INSULIN GLARGINE,HUM.REC.ANLOG 300 UNIT/3 ML INSULN.PEN SUBCUT SCH (21:43)
[2018-01-20] MEDS: HEPARIN SOD (PORCINE) 5,000 UNIT/ML 1 ML SYRINGE SUBCUT SCH ×2 (06:15→18:49)
[2018-01-20] MEDS: METRONIDAZOLE 500 MG/NS RTU 500 MG/100 ML RTUPB IV SCH ×3 (06:15→22:14)
[2018-01-20 08:56] LABS: HEMATOCRIT 33.7 % (37.9-51.0); HEMOGLOBIN 11.5 g/dL (13.5-17.0); MEAN CORPUSCULAR HEMOGLOBIN 28.7 pg (27.0-33.4); MEAN CORPUSCULAR HGB CONC 34.2 g/dL (32.0-36.0); MEAN CORPUSCULAR VOLUME 84 fl (80-97); PLATELET COUNT 204 10^3/uL (150-450); RED BLOOD COUNT 4.02 10^6/uL (4.35-5.55); WHITE BLOOD COUNT 8.7 10^3/uL (4.0-10.5)
[2018-01-20 09:14] LABS: ANION GAP 9 (5-19); BLOOD UREA NITROGEN 19 mg/dL (7-20); CALCIUM 8.3 mg/dL (8.4-10.2); CARBON DIOXIDE 27 mmol/L (22-30); CHLORIDE 103 mmol/L (98-107); GLUCOSE 210 mg/dL (75-110); PHOSPHORUS 3.2 mg/dL (2.5-4.5); POTASSIUM 4.3 mmol/L (3.6-5.0); SODIUM 138.9 mmol/L (137-145)
[2018-01-20] MEDS: CEFTRIAXONE SODIUM 2,000 MG in DEXTROSE 5%-WATER 100 ML IV SCH (10:00)
[2018-01-20] MEDS: SERTRALINE HCL 50 MG TABLET PO SCH (10:28)
[2018-01-20] MEDS: VALSARTAN 80 MG TABLET PO SCH (10:29)
[2018-01-20] MEDS: HYDROCHLOROTHIAZIDE 12.5 MG TABLET PO SCH (10:29)
[2018-01-20] MEDS: MEMANTINE HCL 10 MG TABLET PO SCH ×2 (10:29→18:49)
[2018-01-20] MEDS: NYSTATIN CREAM 15 GM TOP SCH ×4 (10:30→22:15)
--- NOTE | 2018-01-20 11:59 | PDOC PROGRESS REPORT ---
Subjective Progress Note for:: 01/20/18 Subjective:: sleepy but arousable Reason For Visit: DYSPHAGIA, ARF, DEHYDRATION, DEMENTIA HTN Physical Exam Vital Signs: Temp Pulse Resp BP Pulse Ox 97.9 F 84 14 124/68 100 01/20/18 07:58 01/20/18 07:58 01/20/18 07:58 01/20/18 07:58 01/20/18 07:58 Intake & Output 01/19/18 01/20/18 01/21/18 06:59 06:59 06:59 Intake Total 1565 2680 Output Total 5 Balance 1560 2680 Weight 52.2 kg 52.3 kg General appearance: PRESENT: no acute distress, other - sleepy, arousable Extremities exam: PRESENT: other - R Heel= granulating, pink no cellulitis L Heel= granulating, no cellulitis, granulation tissue noted on calcaneous Results Laboratory Results: 01/20/18 08:35 01/20/18 08:35 01/20/18 01/20/18 08:35 08:35 WBC 8.7 RBC 4.02 L Hgb 11.5 L Hct 33.7 L MCV 84 MCH 28.7 MCHC 34.2 RDW 15.0 H Plt Count 204 Sodium 138.9 Potassium 4.3 Chloride 103 Carbon Dioxide 27 Anion Gap 9 BUN 19 Creatinine 1.01 Est GFR ( Amer) > 60 Est GFR (Non-Af Amer) > 60 Glucose 210 H Calcium 8.3 L Phosphorus 3.2 Magnesium 2.2 Impressions: Chest X-Ray 01/14/18 18:27 IMPRESSION: Similar chronic interstitial changes in the lung bases, left greater than right. Similar small area of nodularity in the right mid lung, more apparent on the current study. No consolidation or pleural effusion. Head CT 01/14/18 18:28 IMPRESSION: Chronic bilateral subdural collections. Involutional changes of aging. Chronic microvascular ischemia. No acute intracranial imaging findings. EVIDENCE OF ACUTE STROKE: NO. KUB X-Ray 01/16/18 00:00 IMPRESSION: 2 separate views of the abdomen were submitted 1 demonstrates the NG tube coiled in the esophagus. A separate film demonstrates an NG tube with the tip in the left upper quadrant most likely stomach. Timing of the films cannot be determined. Modified Barium Swallow 01/17/18 00:00 IMPRESSION: LARYNGEAL PENETRATION WITH THIN AND NECTAR THICK CONSISTENCIES, WITH POSSIBLE TRACE ASPIRATION WITH THIN BARIUM.PLEASE SEE SPEECH PATHOLOGIST REPORT FOR OTHER FINDINGS AND RECOMMENDATIONS. Assessment & Plan - Diagnosis (1) Decubitus ulcer of heel, bilateral Is this a current diagnosis for this admission?: Yes - Plan Summary Plan Summary: A/ POD#2 after bilateral heel debridment VSS, AF R heel= granulating L heel= granulating, granulation tissue noted on calcaneous Tissue biopsy cultures obtained in surgery npending P/ Continue triple antibiotic ointment plus IV abx Continue flagyl/ceftriaxone Waiting for final cx Patient can be discharged from hospital once the final cx are available and nutrition plan as been formulated
[2018-01-20] MEDS: DONEPEZIL HCL 5 MG TABLET PO SCH (18:49)
[2018-01-20] MEDS: MEGESTROL ACETATE SUSP 400 MG/10 ML UDCUP PO SCH (18:54)
[2018-01-20] MEDS: INSULIN GLARGINE,HUM.REC.ANLOG 300 UNIT/3 ML INSULN.PEN SUBCUT SCH (22:15)
--- NOTE | 2018-01-20 22:47 | PDOC PROGRESS REPORT ---
Subjective Progress Note for:: 01/20/18 Subjective:: REDDY ROSAS is a 87 year old male with a past medical history of diabetes, advanced dementia, nonverbal requiring 100% care by family members at bedside. He presents with 1 week of cough with eating and drinking, significant reluctance of p.o. intake. Admitted to hospitalist for hyponatremia, acute renal failure, dehydration and hyperglycemia. The patient was seen this morning on rounds. He is sleeping but easy to arouse. The patient is minimally interactive today, his speech is somewhat slurred and he is not as alert as he has been in days past. Discussed with family the plan to re-evaluate swallowing ability tomorrow with speech therapy. If patient fails , will need to discuss the possibility of a PEG vs. palliative care. For now, resume enteral feeding via NG tube. POD#2 bilateral heel debridment. Empiric antibiotic coverage per surgery. Patient has remained afebrile. Reason For Visit: DYSPHAGIA, ARF, DEHYDRATION, DEMENTIA HTN Physical Exam Vital Signs: Temp Pulse Resp BP Pulse Ox 98.5 F 79 17 116/57 L 100 01/20/18 20:12 01/20/18 20:12 01/20/18 20:12 01/20/18 20:12 01/20/18 20:12 Intake & Output 01/19/18 01/20/18 01/21/18 06:59 06:59 06:59 Intake Total 1565 2680 543 Output Total 5 Balance 1560 2680 543 Weight 52.2 kg 52.3 kg General appearance: PRESENT: no acute distress, thin Head exam: PRESENT: atraumatic Eye exam: PRESENT: conjunctiva pink, PERRLA Mouth exam: PRESENT: moist Teeth exam: PRESENT: poor dentation Neck exam: PRESENT: full ROM Respiratory exam: PRESENT: clear to auscultation tanner, symmetrical, unlabored Cardiovascular exam: PRESENT: +S1, +S2 Pulses: PRESENT: normal radial pulses, normal dorsalis pedis pul Vascular exam: PRESENT: normal capillary refill GI/Abdominal exam: PRESENT: normal bowel sounds, soft. ABSENT: tenderness Rectal exam: PRESENT: deferred Extremities exam: ABSENT: full ROM, pedal edema Musculoskeletal exam: ABSENT: ambulatory - bed bound, full ROM, normal inspection Neurological exam: PRESENT: awake - arousable to verbal stimuli Skin exam: PRESENT: dry, intact, normal color, other - BILATERAL HEEL PRESSURE ULCERS, DEBRIDEMENT DONE BY SURGERY, CURRENTLY WRAPPED IN HILLARY BANDAGE Results Laboratory Results: 01/20/18 08:35 01/20/18 08:35 01/20/18 01/20/18 08:35 08:35 WBC 8.7 RBC 4.02 L Hgb 11.5 L Hct 33.7 L MCV 84 MCH 28.7 MCHC 34.2 RDW 15.0 H Plt Count 204 Sodium 138.9 Potassium 4.3 Chloride 103 Carbon Dioxide 27 Anion Gap 9 BUN 19 Creatinine 1.01 Est GFR ( Amer) > 60 Est GFR (Non-Af Amer) > 60 Glucose 210 H Calcium 8.3 L Phosphorus 3.2 Magnesium 2.2 Impressions: Chest X-Ray 01/14/18 18:27 IMPRESSION: Similar chronic interstitial changes in the lung bases, left greater than right. Similar small area of nodularity in the right mid lung, more apparent on the current study. No consolidation or pleural effusion. Head CT 01/14/18 18:28 IMPRESSION: Chronic bilateral subdural collections. Involutional changes of aging. Chronic microvascular ischemia. No acute intracranial imaging findings. EVIDENCE OF ACUTE STROKE: NO. KUB X-Ray 01/16/18 00:00 IMPRESSION: 2 separate views of the abdomen were submitted 1 demonstrates the NG tube coiled in the esophagus. A separate film demonstrates an NG tube with the tip in the left upper quadrant most likely stomach. Timing of the films cannot be determined. Modified Barium Swallow 01/17/18 00:00 IMPRESSION: LARYNGEAL PENETRATION WITH THIN AND NECTAR THICK CONSISTENCIES, WITH POSSIBLE TRACE ASPIRATION WITH THIN BARIUM.PLEASE SEE SPEECH PATHOLOGIST REPORT FOR OTHER FINDINGS AND RECOMMENDATIONS. Status: Imported from PACS Assessment & Plan - Diagnosis (1) Failure to thrive in adult Is this a current diagnosis for this admission?: Yes Plan: Likely multifactoral - electrolyte derangement, dehydration, poor nutrition The patient's mental status drastically improved with enteral feeding and hydration Electrolytes now WNL Patient was noted to be lethargic after receiving haldol each night (home medication) D/c all sedatives (benzo's and pain medication) Encourage day/night cues (2) Dysphagia Qualifiers: Dysphagia type: oropharyngeal phase Qualified Code(s): R13.12 - Dysphagia, oropharyngeal phase Is this a current diagnosis for this admission?: Yes Plan: Able to participate in modified barium swallow evaluation 01/18/2018, but procedure was done with NG in place Speech therapist recommends mechanical soft diet with thickened liquids Nursing staff admits that patient often clears his throat/coughs after a few bites of food at each meal Patient will likely need another modified barium swallow next week to re- evaluate, this time with NG d/c'd Continue enteral feeding and free water in the meantime Discussed with family the options of PEG vs. palliative care if the patient continues to fail repeated swallow evaluations (3) Hypernatremia Is this a current diagnosis for this admission?: Yes Plan: Resolved Na trending down 153-->139 Secondary to dehydration Continue free water with enteral feeding for hydration (4) Severe dehydration Is this a current diagnosis for this admission?: Yes Plan: Secondary to prolonged anorexia and dysphagia Improved with IVF and enteral feeding BUN decreased from 63-->27 Continue to monitor with daily chemistries (5) Acute renal failure Is this a current diagnosis for this admission?: Yes Plan: Resolved Creatinine WNL FOR 24HRS+ Continue to monitor with daily chemistries (6) Pressure ulcer of both feet Is this a current diagnosis for this admission?: Yes Plan: Large pressure ulcers on the heels of both feet Nursing staff has elevated lower extremities with pillows Surgery preformed debridement. Now POD#2 Empiric antibiotics and topical antibiotics per surgery - Time Time Spent with patient: 15-24 minutes Medications reviewed and adjusted accordingly: Yes - Inpatient Certification Based on my medical assessment, after consideration of the patient's comorbidities, presenting symptoms, or acuity I expect that the services needed warrant INPATIENT care.: Yes I certify that my determination is in accordance with my understanding of Medicare's requirements for reasonable and necessary INPATIENT services [42 CFR 412.3e].: Yes Medical Necessity: Need Close Monitoring Due to Risk of Patient Decompensation, Risk of Complication if Not Cared For in Hospital - Plan Summary Plan Summary: MODIFIED BARIUM SWALLOW TOMORROW WITHOUT NG TUBE IN PLACE. IF FAILS, WILL NEED TO DISCUSS PEG VS PALLIATIVE.
[2018-01-21 05:48] LABS: HEMATOCRIT 33.5 % (37.9-51.0); HEMOGLOBIN 11.3 g/dL (13.5-17.0); MEAN CORPUSCULAR HEMOGLOBIN 28.6 pg (27.0-33.4); MEAN CORPUSCULAR HGB CONC 33.7 g/dL (32.0-36.0); MEAN CORPUSCULAR VOLUME 85 fl (80-97); PLATELET COUNT 244 10^3/uL (150-450); RED BLOOD COUNT 3.95 10^6/uL (4.35-5.55); RED CELL DISTRIBUTION WIDTH 15.4 % (11.5-14.0); WHITE BLOOD COUNT 9.3 10^3/uL (4.0-10.5)
[2018-01-21] MEDS: HEPARIN SOD (PORCINE) 5,000 UNIT/ML 1 ML SYRINGE SUBCUT SCH ×2 (05:54→17:48)
[2018-01-21] MEDS: METRONIDAZOLE 500 MG/NS RTU 500 MG/100 ML RTUPB IV SCH ×3 (05:54→21:51)
[2018-01-21 06:15] LABS: ALANINE AMINOTRANSFERASE 40 U/L (21-72); ALBUMIN 2.8 g/dL (3.5-5.0); ALKALINE PHOSPHATASE 111 U/L (38-126); ANION GAP 8 (5-19); ASPARTATE AMINO TRANSFERASE 61 U/L (17-59); BILIRUBIN,DIRECT 0.2 mg/dL (0.0-0.4); BILIRUBIN,TOTAL 0.3 mg/dL (0.2-1.3); BLOOD UREA NITROGEN 21 mg/dL (7-20); CALCIUM 8.8 mg/dL (8.4-10.2); CARBON DIOXIDE 29 mmol/L (22-30); CHLORIDE 102 mmol/L (98-107); GLUCOSE 150 mg/dL (75-110); PHOSPHORUS 3.1 mg/dL (2.5-4.5); SODIUM 138.6 mmol/L (137-145); TOTAL PROTEIN 5.4 g/dL (6.3-8.2)
[2018-01-21] MEDS: NYSTATIN CREAM 15 GM TOP SCH ×4 (10:53→21:52)
[2018-01-21] MEDS: MEGESTROL ACETATE SUSP 400 MG/10 ML UDCUP PO SCH (10:54)
[2018-01-21] MEDS: HYDROCHLOROTHIAZIDE 12.5 MG TABLET PO SCH (10:56)
[2018-01-21] MEDS: VALSARTAN 80 MG TABLET PO SCH (10:58)
[2018-01-21] MEDS: MEMANTINE HCL 10 MG TABLET PO SCH ×2 (10:58→17:48)
[2018-01-21] MEDS: SERTRALINE HCL 50 MG TABLET PO SCH (10:58)
[2018-01-21] MEDS: CEFTRIAXONE SODIUM 2,000 MG in DEXTROSE 5%-WATER 100 ML IV SCH (10:59)
--- NOTE | 2018-01-21 13:15 | PDOC PROGRESS REPORT ---
Subjective Subjective:: Patient arouses but does not follow commands or verbally communicate Reason For Visit: DYSPHAGIA, ARF, DEHYDRATION, DEMENTIA HTN Physical Exam Vital Signs: Temp Pulse Resp BP Pulse Ox 98.3 F 74 17 120/56 L 100 01/21/18 11:47 01/21/18 11:47 01/21/18 11:47 01/21/18 11:47 01/21/18 11:47 Intake & Output 01/20/18 01/21/18 01/22/18 06:59 06:59 06:59 Intake Total 2680 1363 Balance 2680 1363 Weight 52.3 kg 53.3 kg General appearance: PRESENT: other - Arousable manual and verbal stimulation. Does not follow commands. Musculoskeletal exam: PRESENT: other - Extremities wrapped, murdock boots, pillows under her knees Results Laboratory Results: 01/21/18 05:26 01/21/18 05:26 01/21/18 01/21/18 05:26 05:26 WBC 9.3 RBC 3.95 L Hgb 11.3 L Hct 33.5 L MCV 85 MCH 28.6 MCHC 33.7 RDW 15.4 H Plt Count 244 Sodium 138.6 Potassium 4.0 Chloride 102 Carbon Dioxide 29 Anion Gap 8 BUN 21 H Creatinine 0.91 Est GFR ( Amer) > 60 Est GFR (Non-Af Amer) > 60 Glucose 150 H Calcium 8.8 Phosphorus 3.1 Magnesium 2.4 H Total Bilirubin 0.3 AST 61 H ALT 40 Alkaline Phosphatase 111 Total Protein 5.4 L Albumin 2.8 L Impressions: Chest X-Ray 01/14/18 18:27 IMPRESSION: Similar chronic interstitial changes in the lung bases, left greater than right. Similar small area of nodularity in the right mid lung, more apparent on the current study. No consolidation or pleural effusion. Head CT 01/14/18 18:28 IMPRESSION: Chronic bilateral subdural collections. Involutional changes of aging. Chronic microvascular ischemia. No acute intracranial imaging findings. EVIDENCE OF ACUTE STROKE: NO. KUB X-Ray 01/16/18 00:00 IMPRESSION: 2 separate views of the abdomen were submitted 1 demonstrates the NG tube coiled in the esophagus. A separate film demonstrates an NG tube with the tip in the left upper quadrant most likely stomach. Timing of the films cannot be determined. Modified Barium Swallow 01/17/18 00:00 IMPRESSION: LARYNGEAL PENETRATION WITH THIN AND NECTAR THICK CONSISTENCIES, WITH POSSIBLE TRACE ASPIRATION WITH THIN BARIUM.PLEASE SEE SPEECH PATHOLOGIST REPORT FOR OTHER FINDINGS AND RECOMMENDATIONS. Assessment & Plan - Diagnosis (1) Decubitus ulcer of heel, bilateral Is this a current diagnosis for this admission?: Yes Plan: Impression: Patient is reaching end of life, a cognitive, musculoskeletal and respiratory standpoint. Discussion: 1. At bedside I spoke with patient's youngest son, Jay, who has durable health care power of occupational therapist assistant responsibility according to him. I explained to him that the patient approaching end of life, and care should be directed towards palliation. I discouraged feeding tube insertion, and any further debridement of the lower extremities. 2. The son, Jay, states that the patient expressed to him directly, when he was competent, that he did not want to be supported on life care, or have a feeding tube. 3. Surgery will sign off for now; reconsult as indicated. (2) Dysphagia Qualifiers: Dysphagia type: oropharyngeal phase Qualified Code(s): R13.12 - Dysphagia, oropharyngeal phase Is this a current diagnosis for this admission?: Yes (3) Failure to thrive in adult Is this a current diagnosis for this admission?: Yes
--- NOTE | 2018-01-21 14:15 | RADIOLOGY REPORT (SQ) ---
EXAM DESCRIPTION: COOKIE SWALLOW COMPLETED DATE/TIME: 01/21/2018 1:22 pm REASON FOR STUDY: DYSPHAGIA advanced dementia, aspiration pneumonia COMPARISON: Modified barium swallow 01/17/2018 TECHNIQUE: Videofluoroscopic swallowing examination was performed in conjunction with speech patholo gy. Videofluoroscopic imaging was obtained and reviewed and these are the findings: RADIATION DOSE: 3 minutes 10 seconds of fluoroscopy was used. 2 images saved to PACS. LIMITATIONS: None FINDINGS: The patient was brought into the fluoro room and placed upright on a modified barium swall ow chair. The patient was then given multiple consistencies mixed with barium to swallow under live fluoroscopic video guidance. According to the Speech Pathologist there was laryngeal penetration and aspiration of thin liquids. Penetration of post swallow residual contrast from the Piriforms noted. IMPRESSION: LARYNGEAL PENETRATION AND ASPIRATION OF THIN LIQUIDS. PENETRATION IS SEEN OF POST SWALL OW RESIDUALS.PLEASE SEE SPEECH PATHOLOGIST REPORT FOR OTHER FINDINGS AND RECOMMENDATIONS. COMMENT: Quality ID [id number]: Final reports for procedures using fluoroscopy that document radiation exp osure indices, or exposure time and number of fluorographic images (if radiation exposure indices are not available) TECHNICAL DOCUMENTATION: JOB ID: [id number] [employer]- All Rights Reserved Reading location - IP/workstation name: [email or web address] [id number]
--- NOTE | 2018-01-21 14:30 | ST Inp Modified Barium Swallow ---
Medical Diagnosis - Medical Diagnoses Medical Diagnosis Description & ICD-10 Code(s): dysphagia R13.10 Inpatient MBS - General Date: 01/21/18 Date of Onset: 01/14/18 - History History Obtained From: Other - EMR -: Medical - Patient admitted 01/14/18 with reduced intake and coughing with meals x2 weeks. Patient was placed on NG feeds due to reduced mental status. MBSS was completed 01/17/18, and showed consistent deep penetration of thin and nectar liquids, as well as significant residue after honey thick trials. Patient has been eating orally on recommended diet with NG still in place. NG removed this day prior to follow up study. Medications: Medications Reviewed Allergies: No known allergies - Subjective Current Nutritional Means: NG, PO Current PO Diet: Mechanical- ground, Thickened liquids Current Symptoms: Poor intake, Coughing Pain: Patient reports, unable to communicate - largely non-verbal secondary to dementia, no signs/symptoms of pain - Objective Assessment: Upright, Left Lateral - Food Trials Food Trials Used: Thin liquids, Honey-thickened liquids, Kiana thick liquids, Pureed, Regular The Patient: fed by ST, via cup, via spoon - Assessment Labial Function: Within Functional Limits Lingual Function: Within Functional Limits Mandibular Function: Within Functional Limits Dentition: Partial - Pharyngeal Stage Initiation of Pharyngeal Stage: Delayed Reflex Delay Time (seconds): 4 Decreased Laryngeal Elevation: No Reduced Velo-Pharyngeal Closure: no Reduced Pressure Generation: Yes Reduced Tongue Base Retraction: No Pre-Swallowing Pooling in Valleculae: Moderate Pre-Swallowing Pooling in Pyriforms: Moderate Reduced Thyro-Hyiod Approximation: No Reduced Epiglottic Excursion: No Post Swallow Residuals in Valleculae: Moderate Post Swallow Residuals in Pyriforms: Mild - Esophageal Stage Cricophageal Function: Normal - Impression/Summary Laryngeal Penetration: Yes, Cough - strong cough reflex when penetration occured , during swallow - with thin and nectar trials, after swallow - on residue from honey/pudding trials Tracheal Aspiration: yes, cough, during swallow - on thin liquid trials x2 Productive Cough: Yes Effective Clearing: partial clearing Compensatory Strategies: Unable to follow commands for use of compensatory strategies Patient Presents With: Pharyngeal stage dysph., Mild-Moderate Risk of Aspiration: Moderate - Recommendations Solid Diet Recommendations: Mechanical Soft, Ground Meat Liquid Diet Recommendations: Kiana-Thick Strict Aspitarion Precautions: Yes Dysphagia Therapy with FINISH OPENER: No, Follow Up PRN Recommended Techniques: Fully Upright During Meal, Small Bites and Sips, Alternate Bites/Sips Supervision: requires assistance Other Recommendations: Discussed diet recommendations with family, as well as reduced rate for liquids. - Time Total Time: 20 Total Timed Minutes: 20
[2018-01-21] MEDS: DONEPEZIL HCL 5 MG TABLET PO SCH (17:48)
--- NOTE | 2018-01-21 18:59 | PDOC PROGRESS REPORT ---
Subjective Progress Note for:: 01/21/18 Subjective:: No adverse events. He is been tolerating his tube feeds without any difficulties. He has to wear mitts on his hands to keep him from pulling at the NG tube. Had a long discussion today with his son, Jay, who is his primary caregiver. Jay does not want to put a PEG tube in this gentleman and would prefer to go a palliative route, but his 2 older brothers want to be more aggressive, and not wanting to cause a schism in the family, he is reluctantly going on with them on this, but is hoping his father will do better on the swallow study today in the hopes that he can at least eat something so they will not have to put a PEG tube in him. Reason For Visit: DYSPHAGIA, ARF, DEHYDRATION, DEMENTIA HTN Physical Exam Vital Signs: Temp Pulse Resp BP Pulse Ox 98.3 F 84 16 104/62 100 01/21/18 16:12 01/21/18 16:12 01/21/18 16:12 01/21/18 16:12 01/21/18 16:12 Intake & Output 01/20/18 01/21/18 01/22/18 06:59 06:59 06:59 Intake Total 2680 1363 100 Balance 2680 1363 100 Weight 52.3 kg 53.3 kg General appearance: PRESENT: no acute distress, thin Respiratory exam: PRESENT: clear to auscultation tanner, symmetrical, unlabored Cardiovascular exam: PRESENT: +S1, +S2 Pulses: PRESENT: normal radial pulses, normal dorsalis pedis pul Vascular exam: PRESENT: normal capillary refill GI/Abdominal exam: PRESENT: normal bowel sounds, soft. ABSENT: tenderness Extremities exam: ABSENT: full ROM, pedal edema. He likes to sit with a pillow under his knees to keep his legs flexed Musculoskeletal exam: ABSENT: ambulatory - bed bound, full ROM, normal inspection Neurological exam: PRESENT: awake - arousable to verbal stimuli Skin exam: PRESENT: dry, intact, normal color, other - BILATERAL HEEL PRESSURE ULCERS, DEBRIDEMENT DONE BY SURGERY, CURRENTLY WRAPPED IN HILLARY BANDAGE Results Laboratory Results: 01/21/18 05:26 01/21/18 05:26 01/21/18 01/21/18 05:26 05:26 WBC 9.3 RBC 3.95 L Hgb 11.3 L Hct 33.5 L MCV 85 MCH 28.6 MCHC 33.7 RDW 15.4 H Plt Count 244 Sodium 138.6 Potassium 4.0 Chloride 102 Carbon Dioxide 29 Anion Gap 8 BUN 21 H Creatinine 0.91 Est GFR ( Amer) > 60 Est GFR (Non-Af Amer) > 60 Glucose 150 H Calcium 8.8 Phosphorus 3.1 Magnesium 2.4 H Total Bilirubin 0.3 AST 61 H ALT 40 Alkaline Phosphatase 111 Total Protein 5.4 L Albumin 2.8 L 01/18/18 17:00 Foot - Right Heel Gram Stain - Final 01/18/18 17:00 Foot - Right Heel Wound Culture - Final Skin [place] No Anaerobic Organisms Impressions: Chest X-Ray 01/14/18 18:27 IMPRESSION: Similar chronic interstitial changes in the lung bases, left greater than right. Similar small area of nodularity in the right mid lung, more apparent on the current study. No consolidation or pleural effusion. Head CT 01/14/18 18:28 IMPRESSION: Chronic bilateral subdural collections. Involutional changes of aging. Chronic microvascular ischemia. No acute intracranial imaging findings. EVIDENCE OF ACUTE STROKE: NO. KUB X-Ray 01/16/18 00:00 IMPRESSION: 2 separate views of the abdomen were submitted 1 demonstrates the NG tube coiled in the esophagus. A separate film demonstrates an NG tube with the tip in the left upper quadrant most likely stomach. Timing of the films cannot be determined. Modified Barium Swallow 01/21/18 00:00 IMPRESSION: LARYNGEAL PENETRATION AND ASPIRATION OF THIN LIQUIDS. PENETRATION IS SEEN OF POST SWALLOW RESIDUALS.PLEASE SEE SPEECH PATHOLOGIST REPORT FOR OTHER FINDINGS AND RECOMMENDATIONS. Assessment & Plan - Diagnosis (1) Decubitus ulcer of heel, bilateral Is this a current diagnosis for this admission?: Yes Plan: Following surgery recommendations regarding wound care. Hoping to be able to improve his nutrition. (2) Failure to thrive in adult Is this a current diagnosis for this admission?: Yes Plan: He also has dysphasia. His son Jay says that it is almost as if he has forgotten how to swallow. I would not be surprised if that is the case. Hopefully he will do better on the swallow study today and they can take out the NG tube and be able to feed him some sort of modified diet, because I would certainly hope that this man would not want up with a PEG tube. (3) Dysphagia Qualifiers: Dysphagia type: oropharyngeal phase Qualified Code(s): R13.12 - Dysphagia, oropharyngeal phase Is this a current diagnosis for this admission?: Yes Plan: As noted above (4) Hypernatremia Is this a current diagnosis for this admission?: Yes Plan: Resolved (5) Severe dehydration Is this a current diagnosis for this admission?: Yes Plan: Resolved - Time Time Spent with patient: 25-34 minutes
[2018-01-21] MEDS ORDERED: ZOLPIDEM TARTRATE 5 MG TABLET PO ONE (21:30)
[2018-01-21] MEDS: INSULIN GLARGINE,HUM.REC.ANLOG 300 UNIT/3 ML INSULN.PEN SUBCUT SCH (21:52)
[2018-01-22 05:06] LABS: HEMATOCRIT 34.1 % (37.9-51.0); HEMOGLOBIN 11.4 g/dL (13.5-17.0); MEAN CORPUSCULAR HGB CONC 33.5 g/dL (32.0-36.0); MEAN CORPUSCULAR VOLUME 84 fl (80-97); PLATELET COUNT 234 10^3/uL (150-450); RED BLOOD COUNT 4.08 10^6/uL (4.35-5.55); RED CELL DISTRIBUTION WIDTH 15.3 % (11.5-14.0); WHITE BLOOD COUNT 7.8 10^3/uL (4.0-10.5)
[2018-01-22 05:29] LABS: ALANINE AMINOTRANSFERASE 47 U/L (21-72); ALBUMIN 2.8 g/dL (3.5-5.0); ALKALINE PHOSPHATASE 113 U/L (38-126); ANION GAP 6 (5-19); ASPARTATE AMINO TRANSFERASE 77 U/L (17-59); BILIRUBIN,DIRECT 0.2 mg/dL (0.0-0.4); BILIRUBIN,TOTAL 0.3 mg/dL (0.2-1.3); BLOOD UREA NITROGEN 30 mg/dL (7-20); CALCIUM 8.8 mg/dL (8.4-10.2); CARBON DIOXIDE 29 mmol/L (22-30); CHLORIDE 104 mmol/L (98-107); GLUCOSE 184 mg/dL (75-110); TOTAL PROTEIN 5.2 g/dL (6.3-8.2)
[2018-01-22] MEDS: METRONIDAZOLE 500 MG/NS RTU 500 MG/100 ML RTUPB IV SCH ×3 (06:16→23:06)
[2018-01-22] MEDS: HEPARIN SOD (PORCINE) 5,000 UNIT/ML 1 ML SYRINGE SUBCUT SCH ×2 (06:16→18:31)
[2018-01-22] MEDS: CEFTRIAXONE SODIUM 2,000 MG in DEXTROSE 5%-WATER 100 ML IV SCH (12:36)
[2018-01-22] MEDS: NYSTATIN CREAM 15 GM TOP SCH ×4 (12:40→23:32)
[2018-01-22] MEDS: SERTRALINE HCL 50 MG TABLET PO SCH (12:42)
[2018-01-22] MEDS: MEMANTINE HCL 10 MG TABLET PO SCH ×2 (12:42→18:28)
[2018-01-22] MEDS: MEGESTROL ACETATE SUSP 400 MG/10 ML UDCUP PO SCH (13:28)
[2018-01-22] MEDS: VALSARTAN 80 MG TABLET PO SCH (13:28)
[2018-01-22] MEDS: HYDROCHLOROTHIAZIDE 12.5 MG TABLET PO SCH (13:29)
--- NOTE | 2018-01-22 14:59 | PDOC PROGRESS REPORT ---
Subjective Progress Note for:: 01/22/18 Subjective:: REDDY ROSAS is a 87 year old male with a past medical history of diabetes, advanced dementia, nonverbal requiring 100% care by family members at bedside. He presents with 1 week of cough with eating and drinking. He is recently started on Levaquin for possible pneumonia. Patient passed swallow study although had penetration but no aspiration with nectar thick liquids. He did aspirate thin liquids. Patient's child Magdaleno present in the room who is also his power of assistant prosecuting attorney. He states he talked to his brothers who wish the patient to be transferred for a second opinion. Had a lengthy discussion regarding the patient's underlying cause for his aspiration and his progressive weight loss. The patient has been suffering with dementia for 8 years. He is coming to the end of his life. Our visit is emphatic that he does not wish to have a feeding tube. Patient cannot meet his caloric needs as he lacks desire and the effort to eat adequately. His NG tube is been removed he was tolerating his meals but not eating adequate amount Reason For Visit: DYSPHAGIA, ARF, DEHYDRATION, DEMENTIA HTN Physical Exam Vital Signs: Temp Pulse Resp BP Pulse Ox 98.5 F 86 16 103/58 L 99 01/22/18 12:02 01/22/18 12:02 01/22/18 12:02 01/22/18 12:02 01/22/18 12:02 Intake & Output 01/21/18 01/22/18 01/23/18 06:59 06:59 06:59 Intake Total 1363 410 Balance 1363 410 Weight 53.3 kg 53.2 kg General appearance: PRESENT: no acute distress, other - Nonverbal Head exam: PRESENT: atraumatic, normocephalic Respiratory exam: PRESENT: clear to auscultation tanner. ABSENT: rales, rhonchi, wheezes Cardiovascular exam: PRESENT: RRR. ABSENT: diastolic murmur, rubs, systolic murmur GI/Abdominal exam: PRESENT: normal bowel sounds, soft. ABSENT: distended, guarding, mass, organolmegaly, rebound, tenderness Extremities exam: PRESENT: other - Bilateral heel ulceration status post debridement dressings in place Neurological exam: ABSENT: alert, oriented to person, oriented to place, oriented to time, oriented to situation Results Laboratory Results: 01/22/18 04:06 01/22/18 04:06 01/22/18 01/22/18 04:06 04:06 WBC 7.8 RBC 4.08 L Hgb 11.4 L Hct 34.1 L MCV 84 MCH 28.0 MCHC 33.5 RDW 15.3 H Plt Count 234 Sodium 139.0 Potassium 4.0 Chloride 104 Carbon Dioxide 29 Anion Gap 6 BUN 30 H Creatinine 0.89 Est GFR ( Amer) > 60 Est GFR (Non-Af Amer) > 60 Glucose 184 H Calcium 8.8 Phosphorus 3.0 Magnesium 2.3 Total Bilirubin 0.3 AST 77 H ALT 47 Alkaline Phosphatase 113 Total Protein 5.2 L Albumin 2.8 L 01/18/18 17:05 Foot - Left Heel Gram Stain - Final 01/18/18 17:05 Foot - Left Heel Wound Culture - Final Staphylococcus Epidermidis No Anaerobic Organisms 01/18/18 17:00 Foot - Right Heel Gram Stain - Final 01/18/18 17:00 Foot - Right Heel Wound Culture - Final Skin [place] No Anaerobic Organisms Impressions: Chest X-Ray 01/14/18 18:27 IMPRESSION: Similar chronic interstitial changes in the lung bases, left greater than right. Similar small area of nodularity in the right mid lung, more apparent on the current study. No consolidation or pleural effusion. Head CT 01/14/18 18:28 IMPRESSION: Chronic bilateral subdural collections. Involutional changes of aging. Chronic microvascular ischemia. No acute intracranial imaging findings. EVIDENCE OF ACUTE STROKE: NO. KUB X-Ray 01/16/18 00:00 IMPRESSION: 2 separate views of the abdomen were submitted 1 demonstrates the NG tube coiled in the esophagus. A separate film demonstrates an NG tube with the tip in the left upper quadrant most likely stomach. Timing of the films cannot be determined. Modified Barium Swallow 01/21/18 00:00 IMPRESSION: LARYNGEAL PENETRATION AND ASPIRATION OF THIN LIQUIDS. PENETRATION IS SEEN OF POST SWALLOW RESIDUALS.PLEASE SEE SPEECH PATHOLOGIST REPORT FOR OTHER FINDINGS AND RECOMMENDATIONS. Assessment & Plan - Diagnosis (1) Aspiration pneumonia Qualifiers: Aspiration pneumonia type: unspecified Laterality: unspecified laterality Lung location: lower lobe of lung Qualified Code(s): J69.0 - Pneumonitis due to inhalation of food and vomit Is this a current diagnosis for this admission?: Yes Plan: She currently on ceftriaxone and metronidazole. We will plan 7-day course of therapy for aspiration pneumonia. Patient passed his last swallow eval. Currently on ground dysphasia diet and nectar thick liquids. Discussed with power of assistant prosecuting attorney Magdaleno patient's likelihood that he will be unable to maintain his caloric needs he will gradually weaken and his aspiration will likely return. As no PEG tube is desired I have discussed with him palliative care and hospice. He states his eldest brother is adamant about patient being transferred for second opinion however given the patient's diagnosis there is no value to the transfer have suggested that the family gathered at the bedside and will have a kavita discussion about his diagnosis. If they wish to pursue a second opinion they would have to find a accepting physician or pursue the opinion in the outpatient setting. Patient also has a primary care provider that could assist if they wish to discuss his present situation with him. If they remain insistent on a second opinion then will place a call to a hospital of their choice but explained I cannot guarantee he will be accepted in transfer (2) Dysphagia Qualifiers: Dysphagia type: oropharyngeal phase Qualified Code(s): R13.12 - Dysphagia, oropharyngeal phase Is this a current diagnosis for this admission?: Yes (3) Failure to thrive in adult Is this a current diagnosis for this admission?: Yes Plan: Secondary to advanced dementia with dysphasia as a comorbid state. (4) Pressure ulcer of both feet Is this a current diagnosis for this admission?: Yes Plan: Status post debridement wound care ongoing. (5) Dementia Is this a current diagnosis for this admission?: Yes Plan: Advanced. Patient's overall prognosis is poor will likely suffer repetitive aspirations. Will continue to struggle with renal injury and dehydration has a PEG tube is not desired n.p.o. intake is not adequate. Suspect patient will eventually succumb to an aspiration or an acute renal failure event. He is hospice appropriate - Time Time Spent with patient: 25-34 minutes
--- NOTE | 2018-01-22 15:02 | Progress Note ---
Provider Note Provider Note: ACP: I had a lengthy bedside discussion with Magdaleno power of deputy commonwealth's attorney and child of the patient. Patient is suffering with advanced dementia has extremely poor p.o. intake. Explained as his primary care has told him that most patients succumb to dementia after 4 years. He is in his eighth year of this diagnosis. He is nonverbal it takes a tremendous effort to get him to take n.p.o. intake and hydration. Discussed other care pathways such as palliative care and hospice. Magdaleno states his oldest brother is unwilling to accept that as an option and is requesting he be transferred for second opinion. As the other family members have not been at the bedside have asked him to gather the family for a kavita discussion at where he is in his disease process. A second opinion on a patient with end-stage dementia and dysphasia will not yield any new therapies. The patient and the power of deputy commonwealth's attorney have in the past and present stated no feeding tube will be placed. Therefore patient will likely suffer dehydration or aspiration repetitively until comfort measures are initiated. Magdaleno understands this and is agreeable to try to get his family members to the bedside for a discussion about alternative treatment plans for this patient. Patient currently is a DO NOT RESUSCITATE and given his multiple comorbid states comfort measures only would be appropriate and Magdaleno who is the power of deputy commonwealth's attorney agrees but does not wish to fracture the family at this time. Time spent in ACP 22 minutes
[2018-01-22] MEDS: INSULIN LISPRO 100 UNIT/ML 3 ML VIAL SUBCUT PRN (16:29)
[2018-01-22] MEDS: DONEPEZIL HCL 5 MG TABLET PO SCH (18:27)
[2018-01-22] MEDS ORDERED: ZOLPIDEM TARTRATE 5 MG TABLET PO PRN (22:54)
[2018-01-22] MEDS: INSULIN GLARGINE,HUM.REC.ANLOG 300 UNIT/3 ML INSULN.PEN SUBCUT SCH (23:07)
[2018-01-23] MEDS: METRONIDAZOLE 500 MG/NS RTU 500 MG/100 ML RTUPB IV SCH (05:18)
[2018-01-23] MEDS: HEPARIN SOD (PORCINE) 5,000 UNIT/ML 1 ML SYRINGE SUBCUT SCH ×2 (05:19→17:12)
[2018-01-23 06:04] LABS: HEMATOCRIT 30.1 % (37.9-51.0); HEMOGLOBIN 10.4 g/dL (13.5-17.0); MEAN CORPUSCULAR HEMOGLOBIN 28.9 pg (27.0-33.4); MEAN CORPUSCULAR HGB CONC 34.7 g/dL (32.0-36.0); MEAN CORPUSCULAR VOLUME 83 fl (80-97); PLATELET COUNT 285 10^3/uL (150-450); RED BLOOD COUNT 3.61 10^6/uL (4.35-5.55); RED CELL DISTRIBUTION WIDTH 15.7 % (11.5-14.0); WHITE BLOOD COUNT 10.3 10^3/uL (4.0-10.5)
[2018-01-23 06:26] LABS: ALANINE AMINOTRANSFERASE 41 U/L (21-72); ALBUMIN 2.5 g/dL (3.5-5.0); ALKALINE PHOSPHATASE 103 U/L (38-126); ANION GAP 7 (5-19); ASPARTATE AMINO TRANSFERASE 64 U/L (17-59); BILIRUBIN,DIRECT 0.2 mg/dL (0.0-0.4); BILIRUBIN,TOTAL 0.3 mg/dL (0.2-1.3); BLOOD UREA NITROGEN 46 mg/dL (7-20); CALCIUM 8.5 mg/dL (8.4-10.2); CARBON DIOXIDE 25 mmol/L (22-30); CHLORIDE 107 mmol/L (98-107); GLUCOSE 230 mg/dL (75-110); SODIUM 139.1 mmol/L (137-145); TOTAL PROTEIN 4.8 g/dL (6.3-8.2)
[2018-01-23] MEDS: HYDROCHLOROTHIAZIDE 12.5 MG TABLET PO SCH ×2 (10:46→11:01)
[2018-01-23] MEDS: CEFTRIAXONE SODIUM 2,000 MG in DEXTROSE 5%-WATER 100 ML IV SCH (10:46)
[2018-01-23] MEDS: VALSARTAN 80 MG TABLET PO SCH ×2 (10:46→11:00)
[2018-01-23] MEDS: SERTRALINE HCL 50 MG TABLET PO SCH (10:46)
[2018-01-23] MEDS: MEGESTROL ACETATE SUSP 400 MG/10 ML UDCUP PO SCH (10:46)
[2018-01-23] MEDS: MEMANTINE HCL 10 MG TABLET PO SCH ×2 (10:46→17:12)
[2018-01-23] MEDS: NYSTATIN CREAM 15 GM TOP SCH ×4 (10:47→21:59)
--- NOTE | 2018-01-23 11:56 | PDOC PROGRESS REPORT ---
Subjective Progress Note for:: 01/23/18 Subjective:: REDDY ROSAS is a 87 year old male with a past medical history of diabetes, advanced dementia, nonverbal requiring 100% care by family members at bedside. He presents with 1 week of cough with eating and drinking. He is recently started on Levaquin for possible pneumonia. Patient passed swallow study although had penetration but no aspiration with nectar thick liquids. He did aspirate thin liquids. Patient's child Magdaleno present in the room who is also his power of ip technology transactions attorney. He states he talked to his brothers who wish the patient to be transferred for a second opinion. Had a lengthy discussion regarding the patient's underlying cause for his aspiration and his progressive weight loss. The patient has been suffering with dementia for 8 years. He is coming to the end of his life. Our visit is emphatic that he does not wish to have a feeding tube. Patient cannot meet his caloric needs as he lacks desire and the effort to eat adequately. His NG tube is been removed he was tolerating his meals but not eating adequate amount. Magdaleno reports he discussed the above with his brothers and they have come to the conclusion that the patient has hospice appropriate and that we should initiate comfort measures. Patient is still taking p.o. his creatinine and BUN are slowly starting to rise he appears more alert than yesterday. Reason For Visit: DYSPHAGIA, ARF, DEHYDRATION, DEMENTIA HTN Physical Exam Vital Signs: Temp Pulse Resp BP Pulse Ox 97.6 F 87 16 105/61 97 01/23/18 08:14 01/23/18 08:14 01/23/18 08:14 01/23/18 08:14 01/23/18 08:14 Intake & Output 01/22/18 01/23/18 01/24/18 06:59 06:59 06:59 Intake Total 410 525 100 Balance 410 525 100 Weight 53.2 kg 56 kg General appearance: PRESENT: no acute distress, well-developed, well-nourished Respiratory exam: PRESENT: clear to auscultation tanner. ABSENT: rales, rhonchi, wheezes Cardiovascular exam: PRESENT: bradycardia GI/Abdominal exam: PRESENT: normal bowel sounds, soft. ABSENT: distended, guarding, mass, organolmegaly, rebound, tenderness Extremities exam: PRESENT: full ROM, other - Bilateral heel ulcers dressed. ABSENT: calf tenderness, clubbing, pedal edema Neurological exam: PRESENT: awake, other - We will. ABSENT: alert, oriented to person, oriented to place, oriented to time, oriented to situation Results Laboratory Results: 01/23/18 05:53 01/23/18 05:53 01/23/18 01/23/18 05:53 05:53 WBC 10.3 RBC 3.61 L Hgb 10.4 L Hct 30.1 L MCV 83 MCH 28.9 MCHC 34.7 RDW 15.7 H Plt Count 285 Sodium 139.1 Potassium 4.0 Chloride 107 Carbon Dioxide 25 Anion Gap 7 BUN 46 H Creatinine 0.88 Est GFR ( Amer) > 60 Est GFR (Non-Af Amer) > 60 Glucose 230 H Calcium 8.5 Phosphorus 3.0 Magnesium 2.2 Total Bilirubin 0.3 AST 64 H ALT 41 Alkaline Phosphatase 103 Total Protein 4.8 L Albumin 2.5 L 01/18/18 17:05 Foot - Left Heel Gram Stain - Final 01/18/18 17:05 Foot - Left Heel Wound Culture - Final Staphylococcus Epidermidis No Anaerobic Organisms Impressions: Chest X-Ray 01/14/18 18:27 IMPRESSION: Similar chronic interstitial changes in the lung bases, left greater than right. Similar small area of nodularity in the right mid lung, more apparent on the current study. No consolidation or pleural effusion. Head CT 01/14/18 18:28 IMPRESSION: Chronic bilateral subdural collections. Involutional changes of aging. Chronic microvascular ischemia. No acute intracranial imaging findings. EVIDENCE OF ACUTE STROKE: NO. KUB X-Ray 01/16/18 00:00 IMPRESSION: 2 separate views of the abdomen were submitted 1 demonstrates the NG tube coiled in the esophagus. A separate film demonstrates an NG tube with the tip in the left upper quadrant most likely stomach. Timing of the films cannot be determined. Modified Barium Swallow 01/21/18 00:00 IMPRESSION: LARYNGEAL PENETRATION AND ASPIRATION OF THIN LIQUIDS. PENETRATION IS SEEN OF POST SWALLOW RESIDUALS.PLEASE SEE SPEECH PATHOLOGIST REPORT FOR OTHER FINDINGS AND RECOMMENDATIONS. Assessment & Plan - Diagnosis (1) Aspiration pneumonia Qualifiers: Aspiration pneumonia type: unspecified Laterality: unspecified laterality Lung location: lower lobe of lung Qualified Code(s): J69.0 - Pneumonitis due to inhalation of food and vomit Is this a current diagnosis for this admission?: Yes (2) Dysphagia Qualifiers: Dysphagia type: oropharyngeal phase Qualified Code(s): R13.12 - Dysphagia, oropharyngeal phase Is this a current diagnosis for this admission?: Yes (3) Failure to thrive in adult Is this a current diagnosis for this admission?: Yes (4) Pressure ulcer of both feet Is this a current diagnosis for this admission?: Yes (5) Dementia Is this a current diagnosis for this admission?: Yes - Time Time Spent with patient: 25-34 minutes - Plan Summary Plan Summary: After discussion with him who is the POA. He confirms his brothers are all in agreement that hospice is the care pathway of a wish to proceed with. Will discontinue patient's antibiotics consult hospice and discharge planning. Anticipate patient can be discharged home with hospice tomorrow when durable medical equipment needs have been met
[2018-01-23] MEDS: INSULIN LISPRO 100 UNIT/ML 3 ML VIAL SUBCUT PRN (12:36)
[2018-01-23] MEDS: DONEPEZIL HCL 5 MG TABLET PO SCH (17:12)
[2018-01-23] MEDS: INSULIN GLARGINE,HUM.REC.ANLOG 300 UNIT/3 ML INSULN.PEN SUBCUT SCH (21:08)
[2018-01-24] MEDS: HEPARIN SOD (PORCINE) 5,000 UNIT/ML 1 ML SYRINGE SUBCUT SCH (05:11)
--- NOTE | 2018-01-24 09:28 | PDOC TRANSFER SUMMARY ---
General - Admit/Disc Date/PCP Admission Date/Primary Care Provider: 01/14/18 23:28 LUIS KEVIN MD Discharge Date: 01/24/18 - Discharge Diagnosis (1) Aspiration pneumonia Is this a current diagnosis for this admission?: Yes (2) Dysphagia Is this a current diagnosis for this admission?: Yes (3) Failure to thrive in adult Is this a current diagnosis for this admission?: Yes (4) Pressure ulcer of both feet Is this a current diagnosis for this admission?: Yes (5) Alzheimer's dementia Is this a current diagnosis for this admission?: Yes (6) Severe protein-calorie malnutrition Is this a current diagnosis for this admission?: Yes - Additional Information Resuscitation Status: Do Not Resuscitate Discharge Diet: Other (Comments) - Ground foods and nectar thick liquids Discharge Activity: Bedrest Home Medications: Haloperidol [Haldol 5 mg Tablet] 5 mg PO BIDP PRN 01/16/18 Memantine HCl [Namenda 10 mg Tablet] 10 mg PO BID 01/16/18 Nystatin [Mycostatin Cream 15 gm] 1 applic TOP QID 01/16/18 Sertraline HCl [Zoloft 50 mg Tablet] 50 mg PO DAILY 01/16/18 Acetaminophen [Tylenol 650 mg Supp] 650 mg IN Q4HP PRN supp.rect 01/24/18 Insulin Glargine,Hum.rec.anlog [Basaglar Kwikpen U-100] 36 units SQ QHS #0 01/24 Neomy Sulf/Bacitrac Zn/Poly [Neosporin Ointment 15 gm] 1 applic TP PRN PRN tube 01/24/18 History of Present Illness Admission Date/PCP: 01/14/18 23:28 LUIS KEVIN MD Patient complains of: Failure to thrive History of Present Illness: REDDY ROSAS is a 87 year old male with a past medical history of diabetes, advanced dementia, nonverbal requiring 100% care by family members at bedside. He presents with 1 week of cough with eating and drinking. He is recently started on Levaquin for possible pneumonia. Patient was noted to take medications without water. Followed by significant reluctance of p.o. intake. In the emergency room he is found to have hyponatremia, acute renal failure, dehydration and hyperglycemia. He is referred to the hospitalist for admission. Family members at bedside verifies CODE STATUS with portable DNR. Hospital Course Hospital Course: Patient was admitted to the telemetry floor. Initiated on IV antibiotics for his aspiration pneumonia and a evaluation by speech therapy documented aspiration with thin liquids. A consultation with surgery was obtained for his bilateral heel ulcers. Patient underwent debridement of both heel ulcers. NG tube was placed and patient received enteral nutritional support. He became slightly more alert and a repeat swallow study was performed. He had penetration but no aspiration with ground foods and nectar thick liquids. His NG tube was removed. A lengthy discussion was had with Magdaleno the power of associate attorney regarding the patient's overall prognosis the fact that he has had Alzheimer's dementia for 8 years is steady and progressive decline. It was the patient's desire and Magdaleno carrying out his wish that he not have a feeding tube placed. After discussing various care pathways the family decided that hospice was appropriate and that his care was transitioned to comfort measures only. Consultation with hospice was arranged and durable medical equipment delivered to the home and patient was subsequently discharged Physical Exam Vital Signs: Temp Pulse Resp BP Pulse Ox 99.1 F 93 14 112/67 95 01/24/18 00:00 01/24/18 00:00 01/24/18 00:00 01/24/18 00:00 01/24/18 00:00 Intake & Output 01/23/18 01/24/18 01/25/18 06:59 06:59 06:59 Intake Total 525 200 Balance 525 200 Weight 56 kg General appearance: PRESENT: no acute distress, thin, well-nourished Head exam: PRESENT: atraumatic, normocephalic Eye exam: PRESENT: conjunctiva pink, EOMI, PERRLA. ABSENT: scleral icterus Respiratory exam: PRESENT: clear to auscultation tanner. ABSENT: rales, rhonchi, wheezes Cardiovascular exam: PRESENT: RRR. ABSENT: diastolic murmur, rubs, systolic murmur Pulses: PRESENT: normal dorsalis pedis pul Vascular exam: PRESENT: normal capillary refill GI/Abdominal exam: PRESENT: normal bowel sounds, soft. ABSENT: distended, guarding, mass, organolmegaly, rebound, tenderness Extremities exam: PRESENT: other - Bilateral heel ulcers. ABSENT: calf tenderness, clubbing, pedal edema Neurological exam: PRESENT: awake, CN II-XII grossly intact. ABSENT: oriented to person, oriented to place, oriented to time, oriented to situation, motor sensory deficit Psychiatric exam: PRESENT: appropriate affect, normal mood. ABSENT: homicidal ideation, suicidal ideation Skin exam: PRESENT: dry, warm. ABSENT: cyanosis, intact - Heel ulcers, rash Results Laboratory Results: 01/23/18 05:53 01/23/18 05:53 Impressions: Chest X-Ray 01/14/18 18:27 IMPRESSION: Similar chronic interstitial changes in the lung bases, left greater than right. Similar small area of nodularity in the right mid lung, more apparent on the current study. No consolidation or pleural effusion. Head CT 01/14/18 18:28 IMPRESSION: Chronic bilateral subdural collections. Involutional changes of aging. Chronic microvascular ischemia. No acute intracranial imaging findings. EVIDENCE OF ACUTE STROKE: NO. KUB X-Ray 01/16/18 00:00 IMPRESSION: 2 separate views of the abdomen were submitted 1 demonstrates the NG tube coiled in the esophagus. A separate film demonstrates an NG tube with the tip in the left upper quadrant most likely stomach. Timing of the films cannot be determined. Modified Barium Swallow 01/21/18 00:00 IMPRESSION: LARYNGEAL PENETRATION AND ASPIRATION OF THIN LIQUIDS. PENETRATION IS SEEN OF POST SWALLOW RESIDUALS.PLEASE SEE SPEECH PATHOLOGIST REPORT FOR OTHER FINDINGS AND RECOMMENDATIONS. Transfer Plan - Disposition Transfer Plan: Home with hospice. Comfort measure only continue wound care for comfort. Feedings for comfort can be held if aspiration present Qualifiers - * PATIENT BEING DISCHARGED WITH ANY OF THE FOLLOWING DIAGNOSIS: No Plan Time Spent: Greater than 30 Minutes
[2018-01-24] MEDS: NYSTATIN CREAM 15 GM TOP SCH (10:24)
[2018-01-24] MEDS: MEGESTROL ACETATE SUSP 400 MG/10 ML UDCUP PO SCH (10:24)
[2018-01-24] MEDS: MEMANTINE HCL 10 MG TABLET PO SCH (10:24)
[2018-01-24] MEDS: SERTRALINE HCL 50 MG TABLET PO SCH (10:25)
[2018-01-24 10:54] VITALS: BP 124/67
[2018-01-24] MEDS ORDERED: MAG HYDROX/AL HYDROX/SIMETH SUSP 30 ML UDCUP PO PRN (11:30)
== END 2018-01-24 13:00 | disposition hospice, home (50) | DRG 622 ==
LOC: ER 17:25 → EH 23:28 → 5 01-15 00:50
PROVIDERS: ADMIT Internal Medicine; ATTEND Internal Medicine
PROC: 0DH67UZ Insertion of Feeding Device into Stomach, Via Natural or Artificial Opening (ICD-10-PCS; 2018-01-15)
PROC: 3E0G76Z Introduction of Nutritional Substance into Upper GI, Via Natural or Artificial Opening (ICD-10-PCS; 2018-01-15)
PROC: 0JBP0ZZ Excision of Left Lower Leg Subcutaneous Tissue and Fascia, Open Approach (ICD-10-PCS; 2018-01-18)
PROC: 0JBQ0ZZ Excision of Right Foot Subcutaneous Tissue and Fascia, Open Approach (ICD-10-PCS; principal; 2018-01-18 16:00)
DX: E87.1 Hypo-osmolality and hyponatremia (principal); J69.0 Pneumonitis due to inhalation of food and vomit; L89.624 Pressure ulcer of left heel, stage 4; E43 Unspecified severe protein-calorie malnutrition; N17.9 Acute kidney failure, unspecified; R64 Cachexia; Z68.1 Body mass index [BMI] 19.9 or less, adult; E86.0 Dehydration; E10.65 Type 1 diabetes mellitus with hyperglycemia; Z66 Do not resuscitate; I10 Essential (primary) hypertension; G30.9 Alzheimer's disease, unspecified; F02.80 Dementia in other diseases classified elsewhere, unspecified severity, without behavioral disturbance, psychotic disturbance, mood disturbance, and anxiety; Z82.49 Family history of ischemic heart disease and other diseases of the circulatory system; R62.7 Adult failure to thrive; Z74.01 Bed confinement status; R13.12 Dysphagia, oropharyngeal phase; Z78.1 Physical restraint status; Z51.5 Encounter for palliative care
CPT/HCPCS: 00400; 36415; 51701; 70450; 71045; 74018; 74230; 80048; 80053; 81001; 82962; 83036; 83605; 83690; 83735; 84100; 85025; 85027; 85610; 87040; 87070; 87075; 87077; 87086; 87186; 87205; 88302; 93005; 93010; 96361; 96365; 96366; 99291; G8996-GN; G8997-GN; J0696; J1630; J1644; J1815; J1956; J2060; J2250; J2405; J2704; J3010; J3490; J7030; J7040